=== PATIENT | female | born 1970 | race Caucasian/White ===

== ENCOUNTER → 2023-11-03 | Outpatient (REF) | payer OTHER, SELFPAY | LOC: DHSLP | PROVIDERS: ATTENDING PHYSICIAN Physician Assistant Medical | DX: G47.33 Obstructive sleep apnea (adult) (pediatric) (principal); R09.02 Hypoxemia | CPT/HCPCS: 95800 ==

== ENCOUNTER → 2023-11-15 07:54 | Outpatient (REF) | payer OTHER, SELFPAY | LOC: RAD 07:54 | PROVIDERS: ATTENDING PHYSICIAN Physician Assistant Medical | DX: G44.52 New daily persistent headache (NDPH) (principal); R42 Dizziness and giddiness | CPT/HCPCS: 70450 ==

== ENCOUNTER 2023-12-17 17:42 | Emergency (ER) | payer OTHER, SELFPAY ==
[2023-12-17 17:51] VITALS: BP 104/83
[2023-12-17 18:22] LABS: % Basophils 0.5 % (0-2); % Eosinophils 2.3 % (0-6); % Immature Granulocytes 0.5 % (0-0.5); % Lymphocytes 33.4 % (20.5-51.1); % Neutrophils 54.3 % (42.2-75.2); Absolute Eosinophils 0.2 10^3/uL (0-0.7); Absolute Lymphocytes 2.9 10^3/uL (1.2-3.4); Absolute Monocytes 0.8 10^3/uL (0.1-0.6); Absolute Neutrophils 4.7 10^3/uL (1.4-6.5); Hematocrit 38.8 % (37.0-47.0); Hemoglobin 13.2 g/dL (12.0-16.0); Mean Corpuscular Hgb 28.5 pg (27.0-31.0); Mean Corpuscular Volume 83.8 fL (81.0-99.0); Mean Platelet Volume 9.9 fL (7.4-10.4); Nucleated Red Blood Cells % 0 %; Platelet Count 233 10^3/uL (130-400); Red Blood Cell Count 4.63 10^6/uL (4.20-5.40); Red Cell Dist. Width 13.8 % (11.5-14.5); White Blood Cell Count 8.7 10^3/uL (4.8-10.8)
[2023-12-17 18:45] LABS: Troponin I < 0.012 ng/ml
[2023-12-17 18:49] LABS: ALT (SGPT) 38 U/L (0-35); AST (SGOT) 39 U/L (14-36); Albumin 3.9 g/dl (3.5-5.0); Alkaline Phosphatase 66 U/L (38-126); Blood Urea Nitrogen 10 mg/dl (7-17); Calcium 9.5 mg/dl (8.4-10.2); Carbon Dioxide 23 mmol/L (22-30); Chloride 103 mmol/L (98-107); Glucose 103 mg/dl (70-99); Sodium 136 mmol/L (135-145); Total Bilirubin 0.8 mg/dl (0.2-1.3); Total Protein 7.2 g/dl (6.3-8.2); eGFR > 60.00
--- NOTE | 2023-12-17 19:01 | ED.GENMED ---
History of Present Illness
<Estefania Cope NP - Last Filed: 12/18/23 00:49>
General
Chief Complaint: Fainting Sensation
Source: patient
Exam Limitations: none
Time Seen by Provider: 12/17/23 18:48
Nursing documentation reviewed up to this point in time: agreed with
Travel History
Have you had any contact with someone who has COVID-19?: No
Do you have any symptoms of coronavirus? Fever > 100 degrees, chills, cough, shortness of breath, sore throat, loss of taste or smell, muscle aches, or headache?: No
History of Present Illness
History of Present Illness:
Patient to ED stating her body feels heavy. Symptoms started suddenly approx 2 hours ago. SHe reports feeling lightheaded and 'cloudy'. Reports slight headache. Denies fever/chills, recent illness. No n/v/d. Denies any cp/pressure, SOB, cough.
No joint pain or swelling but states her joints feel tight. Brought to ED by spouse for eval. She was placed on a muscle relaxant and antidepressent by PCP 1 month ago for headaches. SHe states she weaned herself off because medication was not
working.
Past History
<Estefania Cope [employer]OMB[employer] POLISHER - Last Filed: 12/18/23 00:49>
Past History
ED Past Medical History: None
ED Past Surgical History: and Other (hernia repair)
Social History
Tobacco: Non-smoker
Alcohol: Occasional
Drug: None
Personal:
Living: with family
Review of Systems
<Estefania Cope [employer] - Last Filed: 12/18/23 00:49>
Review of Systems
Allergies reviewed?: Yes
All Other Systems: ROS reviewed and negative except as documented in HPI and ROS
Constitutional: Reports no symptoms
EENT: Reports no symptoms
Respiratory: Reports no symptoms
Cardiac: Reports no symptoms
ABD/GI: Reports no symptoms
: Reports no symptoms
Musculoskeletal: Reports other (JOints feel tight. NO swelling)
Skin: Reports no symptoms
Neurological: Reports headache and other (lightheaded, body feels heavy)
Psychiatric: Reports no symptoms
Phy Exam
<Estefania Cope [employer] - Last Filed: 12/18/23 00:49>
General Physical Exam
General Presentation: well appearing and no apparent distress
General age: appears stated age
General Skin: warm and dry
General Habitus: normal
General Mental: alert
Cardiovascular Exam
Cardiovascular Exam: regular rate/rhythm and no edema
Pulmonary Exam
Pulmonary Exam: lungs clear and no respiratory distress
Neurological Exam
Neurological Exam: alert, oriented x3, no motor deficits, no sensory deficits, speech normal and normal gait
Musculoskeletal Exam
Musculoskeletal Exam: full ROM and neuro vasc intact
Skin Exam
Skin Exam: normal color, warm/dry and no rash
Psychiatric Exam
Psychiatric Exam: normal mood/affect
Course
<Estefania Cope [employer] - Last Filed: 12/18/23 00:49>
Orders/Labs/Results
Orders:
Orders
12/17/23 17:54
Electrocardiogram (*1) Urgent
Reason for Study: Vertigo / Dizzy
EKG- Treatment ONCE
12/17/23 18:03
Complete Blood Count/With Diff Urgent
Comprehensive Metabolic Panel Urgent
TSH Reflex To Free T4 Urgent
Comment: ADD ON
Troponin I Urgent
12/17/23 18:58
Add On- LAB Urgent
Tests Added?: TSH reflex T4
CT Head W/o Iv Contrast Urgent
Comment:
Reason For Exam: pain
12/17/23 21:05
Urinalysis Reflex To Culture Urgent
Date Specimen was Collected: 12/17/23
Time Specimen was Collected: 21:01
Urine Microscopic Reflex Cult Urgent
Urine Culture Urgent
MARIO Source: U
Specimen Description:
Date Specimen was Collected: 12/17/23
Time Specimen was Collected: 21:01
12/17/23 21:06
Acetaminophen [Tylenol] 1,000 mg PO NOW STA
12/17/23 21:07
Acetaminophen [Tylenol] 1,000 mg .ROUTE .STK-MED ONE
12/17/23 22:06
Hydrochlorothiazide [Oretic] 25 mg PO NOW STA
Abnormal Lab Results
12/17/23 12/17/23
18:03 21:05
Absolute Monos (auto) 0.8 H 10^3/uL
(0.1-0.6)
Glucose 103 H mg/dl
(70-99)
AST 39 H U/L
(14-36)
ALT 38 H U/L
(0-35)
Leukocyte Esterase Rfl 1+ A
(Negative)
Urine WBC (Reflex) 11-15 A /HPF
(0-5)
Urine Bacteria (Reflex) Few A
(Negative)
12/17/23 18:03
12/17/23 18:03
Vital Signs
Initial and Last Documented VS:
Initial Vital Signs
Temp Pulse Resp BP Pulse Ox
98.6 F 88 18 104/83 98
12/17/23 17:51 12/17/23 17:51 12/17/23 17:51 12/17/23 17:51 12/17/23 17:51
Last Documented Vital Signs
Temp Pulse Resp BP Pulse Ox
98.6 F 81 13 126/83 96
12/17/23 17:51 12/17/23 20:08 12/17/23 20:08 12/17/23 20:08 12/17/23 20:08
<Mahesh Pineda, DO - Last Filed: 12/17/23 21:01>
Orders/Labs/Results
Orders:
Orders
12/17/23 17:54
Electrocardiogram (*1) Urgent
Reason for Study: Vertigo / Dizzy
EKG- Treatment ONCE
12/17/23 18:03
Complete Blood Count/With Diff Urgent
Comprehensive Metabolic Panel Urgent
TSH Reflex To Free T4 Urgent
Comment: ADD ON
Troponin I Urgent
12/17/23 18:58
Add On- LAB Urgent
Tests Added?: TSH reflex T4
CT Head W/o Iv Contrast Urgent
Comment:
Reason For Exam: pain
12/17/23 21:05
Urinalysis Reflex To Culture Urgent
Date Specimen was Collected: 12/17/23
Time Specimen was Collected: 21:01
Urine Microscopic Reflex Cult Urgent
Urine Culture Urgent
MARIO Source: U
Specimen Description:
Date Specimen was Collected: 12/17/23
Time Specimen was Collected: 21:01
12/17/23 21:06
Acetaminophen [Tylenol] 1,000 mg PO NOW STA
12/17/23 21:07
Acetaminophen [Tylenol] 1,000 mg .ROUTE .STK-MED ONE
12/17/23 22:06
Hydrochlorothiazide [Oretic] 25 mg PO NOW STA
Abnormal Lab Results
12/17/23 12/17/23
18:03 21:05
Absolute Monos (auto) 0.8 H 10^3/uL
(0.1-0.6)
Glucose 103 H mg/dl
(70-99)
AST 39 H U/L
(14-36)
ALT 38 H U/L
(0-35)
Leukocyte Esterase Rfl 1+ A
(Negative)
Urine WBC (Reflex) 11-15 A /HPF
(0-5)
Urine Bacteria (Reflex) Few A
(Negative)
12/17/23 18:03
12/17/23 18:03
Vital Signs
Initial and Last Documented VS:
Initial Vital Signs
Temp Pulse Resp BP Pulse Ox
98.6 F 88 18 104/83 98
12/17/23 17:51 12/17/23 17:51 12/17/23 17:51 12/17/23 17:51 12/17/23 17:51
Last Documented Vital Signs
Temp Pulse Resp BP Pulse Ox
98.6 F 81 13 126/83 96
12/17/23 17:51 12/17/23 20:08 12/17/23 20:08 12/17/23 20:08 12/17/23 20:08
<Estefania Cope NP - Last Filed: 12/18/23 00:49>
*Radiology
Radiology exam reviewed: radiology read reviewed
*Pulse Oximetry
Patient hypoxic: no
*Critical Care Note
Total Time (30-74mins, 75-104mins- exclusive of procedures): Not Applicable
<Estefania Cope NP - Last Filed: 12/18/23 00:49>
Update Note
Update Note:
Labs, Ct results reviewed with patient. WIll place on HCTZ for suspected Idiopathic Intracranial hypertnsion. She was given number for neurology follow up. Given insructions on s/s to return to ED and she is agreeable to [facility].
ED Attending Note
<Estefania Cope NP - Last Filed: 12/18/23 00:49>
-
Portions of this chart may have been created with voice recognition software.� Occasional wrong word or��sound alike� substitutions may have occurred due to the inherent limitations of voice recognition software.
<Mahesh Pineda DO - Last Filed: 12/17/23 21:01>
ED Attending Note
Patient seen and examined by attending physician: Yes
I performed the substantive portion of visit, reviewed & personally made and approve the management plan that is documented in note by myself or ITALO.: Yes
ED Attending Note:
Patient is a 53-year-old female who presents to the emergency department complaining of feeling congested and lightheaded with mild headache started this afternoon while driving home. Patient states that her head feels heavy and full. Patient has
minimal headache that she describes frontal going through the back. Patient does not smoke or take any medications. Patient denies any nausea, vomiting, diarrhea, abdominal pain. Patient denies chest pain, shortness of breath or palpitations.
Patient denies any recent illnesses or injuries. Patient states her face feels puffy. Patient denies any upper respiratory type symptoms. Patient denies any rashes or joint pain although does admit to joint stiffness. On physical exam patient
does not appear to be in any distress. Head is normocephalic with supple neck and nontenderness. Heart is regular without gallop or murmur. No carotid bruits. Lungs clear. Abdomen soft nontender. Extremities without edema or cyanosis. Patient
has good peripheral pulses. Neurologically patient is alert and oriented x 3, cranial nerves intact, no motor or sensory deficits, cerebellar intact. Reviewed the labs. Patient does not have a specific diagnosis but appears to be able to go home
and follow-up with family doctor.
Discharge Plan
Departure
Patient Disposition: Home (Routine Discharge)
Date of Disposition: 12/17/23
Time of Disposition: 22:06
Patient with high blood pressure during this ER visit?: No
Condition: Good
Covid-19: Not Applicable
Discharge Problem:
Headache, IIH (idiopathic intracranial hypertension)
Instructions: Headache, Adult ED
Prescriptions:
New
hydrochlorothiazide 25 mg tablet
25 mg PO DAILY Qty: 30 0RF
No Action
No Meds [No Current Medications]
meclizine [Antivert] 25 MG tablet
25 mg PO Q8 PRN (Reason: vertigo) Qty: 30 0RF
Referrals:
Valery Reynolds PA [Family Provider] -
Justin Gill MD [Active] - Call in 1-3 days for appt
Activity Restrictions/Additional Instructions:
Return to the emergency department immediately for any changes in/worsening of your symptoms.
Interventions
Interventions:
*Risk Screen - Suicide Last Done: 12/17/23 17:53
*General Assessment Last Done: 12/17/23 17:53
*Neglect/Abuse Screening Last Done: 12/17/23 17:53
*Nursing Disposition Last Done: 12/17/23 22:20
ED- Cardiac Assessment Last Done: 12/17/23 19:00
ED- Neurological Assessment Last Done: 12/17/23 19:00
Discharge Date and Time
Discharge Date/Time: 12/17/23 22:20
Print Language: KAZAKH
[2023-12-17 20:08] VITALS: BP 126/83
[2023-12-17 20:25] LABS: TSH Reflex To Free T4 1.78 uIU/ml (0.47-4.68)
[2023-12-17] MEDS: TYLENOL 1000 MG PO (21:11)
[2023-12-17 21:19] LABS: Urine Albumin Negative (Neg - Trace); Urine Bilirubin Negative (Negative); Urine Character Clear (Clear); Urine Color Yellow; Urine Glucose Negative (Negative); Urine Ketone Negative (Negative); Urine Leukocyte 1+ (Negative); Urine Nitrite Negative (Negative); Urine Occult Blood Negative (Negative); Urine Specific Gravity 1.015 (<1.030); Urine Urobilinogen Negative (Neg - 1+)
[2023-12-17 21:39] LABS: Urine Bacteria Few (Negative); Urine Red Blood Cell 0-2 /HPF (0-2); Urine Squamous Cell >30 /LPF (Few)
[2023-12-17] MEDS: ORETIC 25 MG PO (22:13)
== END 2023-12-17 22:20 | disposition home or self-care (01) ==
LOC: EMR 17:42
PROVIDERS: Emergency Medicine; Nurse Practitioner; EMERGENCY PHYSICIAN Emergency Medicine; FAMILY PHYSICIAN Physician Assistant Medical
DX: R51.9 Headache, unspecified (principal); G93.2 Benign intracranial hypertension; G93.5 Compression of brain
CPT/HCPCS: 99284; 70450; 80053; 81003; 81015; 84443; 84484; 85025; 87086; 93005

== ENCOUNTER 2023-12-21 09:00 | Emergency (ER) | payer OTHER, SELFPAY ==
--- NOTE | 2023-12-21 12:03 | ED.GENMED ---
History of Present Illness
<NITISH Piper - Last Filed: 12/21/23 18:35>
General
Chief Complaint: Headache
Source: patient and spouse
Exam Limitations: none
Time Seen by Provider: 12/21/23 11:40
Nursing documentation reviewed up to this point in time: agreed with
Travel History
Have you had any contact with someone who has COVID-19?: No
Do you have any symptoms of coronavirus? Fever > 100 degrees, chills, cough, shortness of breath, sore throat, loss of taste or smell, muscle aches, or headache?: Yes
Symptoms:: THOMSON
History of Present Illness
History of Present Illness:
Patient is a 53-year-old female who presents to the ER for headache. Patient reports she has a headache for years but never had this addressed or evaluated by neurology. She has seen family doctor once in the past couple months and was also seen
here several days ago on December 16. She had head CT done 12/16 and idiopathic hypertension was dx with idiopathic hypertension and was discharged on a diuretic without relief.
She continues to complain of headache worse with position change. She feels wobbly. She did vomit 2 days ago. She is not taking anything else for symptoms.
She reports her pupil on the left has problems dilating
Past History
<NITISH Piper - Last Filed: 12/21/23 18:35>
Past History
ED Past Medical History: None
ED Past Surgical History: and Other (hernia repair)
Social History
Tobacco: Non-smoker
Alcohol: Occasional
Drug: None
Personal:
Living: with family
Review of Systems
<NITISH Piper - Last Filed: 12/21/23 18:35>
Review of Systems
Allergies reviewed?: Yes
Other source history: family
All Other Systems: ROS reviewed and negative except as documented in HPI and ROS
Constitutional: Denies fever, fatigue or chills
EENT: Reports no symptoms
Respiratory: Reports no symptoms
Cardiac: Reports no symptoms
ABD/GI: Reports nausea and vomiting
: Reports no symptoms
Musculoskeletal: Reports no symptoms
Skin: Reports no symptoms
Neurological: Reports headache and other (Feels wobbly with gait at times.); Denies dizzy
Phy Exam
<NITISH Piper - Last Filed: 12/21/23 18:35>
General Physical Exam
General Presentation: no apparent distress
General age: appears stated age
General Skin: warm and dry
General Habitus: normal
General Mental: alert
General Hydration: appears well hydrated
Eye Exam
Eye Exam: PERRL, EOMI and other (Left pupil minimally reactive patient reports this is chronic)
Eye Exam General: EOM intact: bilateral
Pupil Exam: Bilateral: round and reactive
Neurological Exam
Neurological Exam: alert, oriented x3, no motor deficits and no sensory deficits
[place] Coma Scale
Eye Opening: Spontaneous
Verbal Response: Oriented
Motor Response: Obeys Commands
GCS Total Score: 15
Cerebellar
Cerebellar Function: normal finger to nose
Musculoskeletal Exam
Musculoskeletal Exam: full ROM
Skin Exam
Skin Exam: normal color and warm/dry
Psychiatric Exam
Psychiatric Exam: normal mood/affect
Course
<NITISH Piper - Last Filed: 12/21/23 18:35>
Orders/Labs/Results
Orders:
Orders
12/21/23 12:42
IV Insert/Care/Rem.- Treatment PRN
0.9% Sodium Chloride 1000 ml [Nss] 1,000 ml IV BOLUS
Metoclopramide [Reglan] 10 mg IV NOW STA
12/21/23 12:43
Diphenhydramine [Benadryl] 25 mg IV NOW STA
Ketorolac [Toradol] 15 mg IV NOW STA
Vital Signs
Initial and Last Documented VS:
Initial Vital Signs
Temp Pulse Resp Pulse Ox
98.3 F 94 16 98
12/21/23 09:04 12/21/23 09:04 12/21/23 09:04 12/21/23 09:04
Last Documented Vital Signs
Temp Pulse Resp BP Pulse Ox
98.3 F 79 18 120/67 100
12/21/23 09:04 12/21/23 13:02 12/21/23 13:02 12/21/23 13:02 12/21/23 13:02
Information Management Manager consulted with Physician
Information Management Manager consulted with physician?: Yes
Name of Physician Consulted: Darrell
<Oseas Ramírez, - Last Filed: 12/21/23 13:56>
Orders/Labs/Results
Orders:
Orders
12/21/23 12:42
IV Insert/Care/Rem.- Treatment PRN
0.9% Sodium Chloride 1000 ml [Nss] 1,000 ml IV BOLUS
Metoclopramide [Reglan] 10 mg IV NOW STA
12/21/23 12:43
Diphenhydramine [Benadryl] 25 mg IV NOW STA
Ketorolac [Toradol] 15 mg IV NOW STA
Vital Signs
Initial and Last Documented VS:
Initial Vital Signs
Temp Pulse Resp Pulse Ox
98.3 F 94 16 98
12/21/23 09:04 12/21/23 09:04 12/21/23 09:04 12/21/23 09:04
Last Documented Vital Signs
Temp Pulse Resp BP Pulse Ox
98.3 F 79 18 120/67 100
12/21/23 09:04 12/21/23 13:02 12/21/23 13:02 12/21/23 13:02 12/21/23 13:02
<NITISH Piper - Last Filed: 12/21/23 18:35>
MDM/Problems Addressed
MDM/Problems Addressed:
Patient is a 53-year-old female with chronic headaches had outpatient CAT scan once in October after being seen by family doctor and was seen here December 16 for continued headache. Had a CAT scan at that time which showed possible idiopathic
intracranial hypertension. She was started on HCTZ but presents back to the ER complaining of worsening headache feels little wobbly has had some vomiting. Patient with normal neurological exam here in the ER. Case reviewed with ED physician
evaluated patient case reviewed with neurology, Dr. Gill.
I spoke with IR to atttempt to get LP however not able to do today. This is not urgent and can be done as outpt. Patient treated for headache symptoms with Reglan Benadryl fluids and Toradol Feeling better. B/90 so much. as per neurology can
start patient on prochlorperazine 10 mg every day as a rescue agent and propranolol 10 mg daily could be a preventive agent will hold off on HCTZ.
<NITISH Piper - Last Filed: 12/21/23 18:35>
*Radiology
Radiology exam reviewed: radiology read reviewed
*Pulse Oximetry
Patient hypoxic: no
*Critical Care Note
Total Time (30-74mins, 75-104mins- exclusive of procedures): Not Applicable
ED Attending Note
<NITISH Piper - Last Filed: 12/21/23 18:35>
-
Portions of this chart may have been created with voice recognition software.� Occasional wrong word or��sound alike� substitutions may have occurred due to the inherent limitations of voice recognition software.
<Oseas Ramírez DO - Last Filed: 12/21/23 13:56>
ED Attending Note
Patient seen and examined by attending physician: Yes
I performed the substantive portion of visit, reviewed & personally made and approve the management plan that is documented in note by myself or ITALO.: Yes
ED Attending Note:
I agree with Anat's note.
Pt with increasing headache. Seen recently and had CT suggestive of IIH. No improvement with hctz that they began yesterday. No focal weakness, numbness, visual changes.
General: Awake, Alert, Oriented X3. No acute distress.
Vitals: unremarkable
Head: Atraumatic
Eyes: Pupils equal, EOMI, I did not identify any papilledema
Throat: Airway intact, no exudates
Neck: Trachea midline
Lungs: Clear and equal b/l
Heart: Regular rate, no murmurs
Abd: Soft, Nontender, No pulsatile mass
Neuro: Cranial nerves intact, muscle strength equal bilaterally, cerebellar exam normal
To call discuss scheduling an LP with IR. She also discussed with neurology. Will treat patient symptomatically at this time.
Discharge Plan
Departure
Patient Disposition: Home (Routine Discharge)
Date of Disposition: 12/21/23
Time of Disposition: 14:52
Patient with high blood pressure during this ER visit?: No
Condition: Fair
Covid-19: Not Applicable
Discharge Problem:
Headache
Prescriptions:
New
prochlorperazine maleate 10 mg tablet
10 mg PO ONCE PRN (Reason: headache) Qty: 10 0RF
propranolol 10 mg tablet
10 mg PO ONCE Qty: 30 0RF
No Action
No Meds [No Current Medications]
meclizine [Antivert] 25 MG tablet
25 mg PO Q8 PRN (Reason: vertigo) Qty: 30 0RF
hydrochlorothiazide 25 mg tablet
25 mg PO DAILY Qty: 30 0RF
Referrals:
Justin Gill MD [Active] -
Franki Leon MD [Family Provider] -
Activity Restrictions/Additional Instructions:
As discussed stop hydrochlorothiazide. You may take propranolol 10 mg daily to prevent headaches. In addition a prescription for prochlorperazine 10 mg was sent to your pharmacy to be taken as needed once daily for headache. Call neurology to
make an appointment as soon as possible.
Return if any worsening of symptoms
Interventions
Interventions:
*Risk Screen - Suicide Last Done: 12/21/23 12:12
*General Assessment Last Done: 12/21/23 12:12
*Neglect/Abuse Screening Last Done: 12/21/23 12:12
ED- Fall Risk Assessment Last Done: 12/21/23 14:38
*Nursing Disposition Last Done: 12/21/23 15:55
ED- Neurological Assessment Last Done: 12/21/23 13:03
Discharge Date and Time
Discharge Date/Time: 12/21/23 15:55
Print Language: [place]
--- NOTE | 2023-12-21 12:16 | EDRN ---
Pts BP on arrival noted in triage summary to be 113/90. Was not documented under VS on arrival.
[2023-12-21] MEDS: TORADOL 15 MG IV (12:57)
[2023-12-21] MEDS: BENADRYL 25 MG IV (12:57)
[2023-12-21] MEDS: NSS 1000 IV (12:58)
[2023-12-21] MEDS: REGLAN 10 MG IV (12:58)
[2023-12-21 13:02] VITALS: BP 120/67
== END 2023-12-21 15:55 | disposition home or self-care (01) ==
LOC: EMR 09:00
PROVIDERS: EMERGENCY PHYSICIAN Emergency Medicine; FAMILY PHYSICIAN Family Medicine
DX: R51.9 Headache, unspecified (principal); I10 Essential (primary) hypertension
CPT/HCPCS: 99282; 96374; 96375; 96361

== ENCOUNTER → 2023-12-31 11:09 | Outpatient (REF) | payer OTHER, SELFPAY ==
[2023-12-31 13:11] LABS: Rubella Positive
[2023-12-31 13:18] LABS: Hepatitis B Surface Antibody Negative
== END ==
LOC: OHS 11:09
PROVIDERS: ATTENDING PHYSICIAN Nurse Practitioner Family
DX: Z23 Encounter for immunization (principal)
CPT/HCPCS: 36415; 86480; 86706; 86735; 86762; 86765; 86787

== ENCOUNTER 2024-01-03 12:31 | Emergency (ER) | payer OTHER, SELFPAY ==
[2024-01-03 12:38] VITALS: BP 105/84
[2024-01-03 13:01] LABS: % Basophils 0.8 % (0-2); % Eosinophils 3.1 % (0-6); % Immature Granulocytes 0.3 % (0-0.5); % Lymphocytes 35.4 % (20.5-51.1); % Monocytes 8.6 % (1.7-9.3); % Neutrophils 51.8 % (42.2-75.2); Absolute Basophils 0.1 10^3/uL (0-0.2); Absolute Eosinophils 0.2 10^3/uL (0-0.7); Absolute Lymphocytes 2.6 10^3/uL (1.2-3.4); Absolute Monocytes 0.6 10^3/uL (0.1-0.6); Absolute Neutrophils 3.9 10^3/uL (1.4-6.5); Hematocrit 43.6 % (37.0-47.0); Hemoglobin 14.4 g/dL (12.0-16.0); Mean Corpuscular Hgb 28.2 pg (27.0-31.0); Mean Corpuscular Volume 85.5 fL (81.0-99.0); Mean Platelet Volume 10.4 fL (7.4-10.4); Nucleated Red Blood Cells % 0 %; Platelet Count 267 10^3/uL (130-400); Red Cell Dist. Width 13.2 % (11.5-14.5); White Blood Cell Count 7.5 10^3/uL (4.8-10.8)
--- NOTE | 2024-01-03 13:39 | ED.GENMED ---
History of Present Illness
<Estefania Cope NP - Last Filed: 01/03/24 20:41>
General
Chief Complaint: Headache
Source: patient
Exam Limitations: none
Time Seen by Provider: 01/03/24 13:27
Nursing documentation reviewed up to this point in time: agreed with
Travel History
Have you had any contact with someone who has COVID-19?: No
Do you have any symptoms of coronavirus? Fever > 100 degrees, chills, cough, shortness of breath, sore throat, loss of taste or smell, muscle aches, or headache?: No
History of Present Illness
History of Present Illness:
Patient to ED with complaint of migraine headache. She was evaluated here 2x in the past month for same. Original CT with suggestion of idiopathic intracranial hypertension. SHe was referred to neuro. States she saw Dr. Ceballos 2 weeks ago. Started
on propranolol and sumatriptan without improvement,. Evaluated by Dr. Medrano (ophthalmology), exam inconclusive. States she was told next step would be LP which was supposed to be scheduled by neuro office but appointment has not been set yet.
Brought to ED today by spouse for eval. Denies fever/chill. Had an episode of vomiting yesterday.
Past History
<Estefania Cope HOTEL HOUSEKEEPER - Last Filed: 01/03/24 20:41>
Past History
ED Past Medical History: None
ED Past Surgical History: and Other (hernia repair)
Social History
Tobacco: Non-smoker
Alcohol: Occasional
Drug: None
Personal:
Living: with family
Review of Systems
<Estefania Cope NP - Last Filed: 01/03/24 20:41>
Review of Systems
Allergies reviewed?: Yes
All Other Systems: ROS reviewed and negative except as documented in HPI and ROS
Constitutional: Reports no symptoms
EENT: Reports no symptoms
Respiratory: Reports no symptoms
Cardiac: Reports no symptoms
ABD/GI: Reports no symptoms
Musculoskeletal: Reports no symptoms
Skin: Reports no symptoms
Neurological: Reports headache
Psychiatric: Reports no symptoms
Phy Exam
<Estefania Cope NP - Last Filed: 01/03/24 20:41>
General Physical Exam
General Presentation: well appearing and mild distress
General age: appears stated age
General Skin: warm and dry
General Habitus: normal
General Mental: alert
Eye Exam
Eye Exam: PERRL, EOMI and conjunctiva normal
Neurological Exam
Neurological Exam: alert, oriented x3, CN II-XII intact, no motor deficits, no sensory deficits, speech normal and normal gait
Musculoskeletal Exam
Musculoskeletal Exam: full ROM and neuro vasc intact
Skin Exam
Skin Exam: normal color, warm/dry and no rash
Psychiatric Exam
Psychiatric Exam: normal mood/affect
Course
<Estefania Cope HOTEL HOUSEKEEPER - Last Filed: 01/03/24 20:41>
Orders/Labs/Results
Orders:
Orders
01/03/24 12:50
Complete Blood Count/With Diff Urgent
Comprehensive Metabolic Panel Urgent
01/03/24 14:28
Diphenhydramine [Benadryl] 50 mg IV NOW STA
Ketorolac [Toradol] 30 mg IV NOW STA
Prochlorperazine [Compazine] 10 mg IV NOW STA
01/03/24 14:30
0.9% Sodium Chloride 500 ml [Nss] 500 ml IV BOLUS
01/03/24 14:46
Consult Interventional Radiology [IRAD CONSULT] Routine
Consulting Provider: Lebron Gonzalez
Was physician already notified: Yes
Reason for Consult/Procedure: Please schedule outpatient LP
Acknowledgement that appropriate orders are entered: Yes
Dexamethasone Sod Phosphate [Decadron] 10 mg IV NOW STA
Abnormal Lab Results
01/03/24
12:50
AST 56 H U/L
(14-36)
ALT 51 H U/L
(0-35)
01/03/24 12:50
01/03/24 12:50
Vital Signs
Initial and Last Documented VS:
Initial Vital Signs
Temp Pulse Resp BP Pulse Ox
98.3 F 68 18 105/84 98
01/03/24 12:38 01/03/24 12:38 01/03/24 12:38 01/03/24 12:38 01/03/24 12:38
Last Documented Vital Signs
Temp Pulse Resp BP Pulse Ox
98.3 F 68 19 123/73 94
01/03/24 12:38 01/03/24 18:26 01/03/24 18:26 01/03/24 18:26 01/03/24 18:26
<Mahesh Pineda, DO - Last Filed: 01/03/24 16:24>
Orders/Labs/Results
Orders:
Orders
01/03/24 12:50
Complete Blood Count/With Diff Urgent
Comprehensive Metabolic Panel Urgent
01/03/24 14:28
Diphenhydramine [Benadryl] 50 mg IV NOW STA
Ketorolac [Toradol] 30 mg IV NOW STA
Prochlorperazine [Compazine] 10 mg IV NOW STA
01/03/24 14:30
0.9% Sodium Chloride 500 ml [Nss] 500 ml IV BOLUS
01/03/24 14:46
Consult Interventional Radiology [IRAD CONSULT] Routine
Consulting Provider: Lebron Gonzalez
Was physician already notified: Yes
Reason for Consult/Procedure: Please schedule outpatient LP
Acknowledgement that appropriate orders are entered: Yes
Dexamethasone Sod Phosphate [Decadron] 10 mg IV NOW STA
Abnormal Lab Results
01/03/24
12:50
AST 56 H U/L
(14-36)
ALT 51 H U/L
(0-35)
01/03/24 12:50
01/03/24 12:50
Vital Signs
Initial and Last Documented VS:
Initial Vital Signs
Temp Pulse Resp BP Pulse Ox
98.3 F 68 18 105/84 98
01/03/24 12:38 01/03/24 12:38 01/03/24 12:38 01/03/24 12:38 01/03/24 12:38
Last Documented Vital Signs
Temp Pulse Resp BP Pulse Ox
98.3 F 68 19 123/73 94
01/03/24 12:38 01/03/24 18:26 01/03/24 18:26 01/03/24 18:26 01/03/24 18:26
<Estefania Cope NP - Last Filed: 01/03/24 20:41>
*Critical Care Note
Total Time (30-74mins, 75-104mins- exclusive of procedures): Not Applicable
<Estefania Cope NP - Last Filed: 01/03/24 20:41>
Update Note
Update Note:
Patient to ED for migraine pain, Has been following with Neurology. Started on Sumatriptan and propranolol. Medication has not been helpful today. Given Migraine cocktail in ED with improvment. Discussed need for LP with IR. IR to schedule
outpatinet appointment with patient. Patient is agreeable to plan.
ED Attending Note
<Estefania Cope NP - Last Filed: 01/03/24 20:41>
-
Portions of this chart may have been created with voice recognition software.� Occasional wrong word or��sound alike� substitutions may have occurred due to the inherent limitations of voice recognition software.
<Mahesh Pineda, DO - Last Filed: 01/03/24 16:24>
ED Attending Note
Patient seen and examined by attending physician: Yes
I performed the substantive portion of visit, reviewed & personally made and approve the management plan that is documented in note by myself or ITALO.: Yes
ED Attending Note:
Patient is 53-year-old female with known history of migraines and was recently started on propranolol after being seen by neurology. Patient states the headache is in the right frontal to occipital region but she has ringing in her left ear which
she typically normally does not. Patient denies any photophobia, visual or speech difficulties. Patient denies focal weakness or ataxia. Patient denies any recent illnesses or injuries. Patient has no nausea or vomiting. Patient CT at 1 point
showed questionable early increased pressure. Patient saw ophthalmology who did not feel this is pseudotumor cerebri. Patient is having difficulty getting into have an LP done at the request of her neurologist. Patient physical exam is
unremarkable and she does not appear to be in any distress. Neurologically she is intact. Heart is regular without bruits or murmurs. Lungs are clear. Patient will have a LP scheduled through interventional radiology. Believe this to be a
chronic migraine headache.
Discharge Plan
Departure
Patient Disposition: Home (Routine Discharge)
Date of Disposition: 01/03/24
Time of Disposition: 17:08
Patient with high blood pressure during this ER visit?: No
Condition: Good
Discharge Problem:
Migraine
Instructions: Migraines (DC)
Prescriptions:
No Action
No Meds [No Current Medications]
meclizine [Antivert] 25 MG tablet
25 mg PO Q8 PRN (Reason: vertigo) Qty: 30 0RF
hydrochlorothiazide 25 mg tablet
25 mg PO DAILY Qty: 30 0RF
prochlorperazine maleate 10 mg tablet
10 mg PO ONCE PRN (Reason: headache) Qty: 10 0RF
propranolol 10 mg tablet
10 mg PO ONCE Qty: 30 0RF
Referrals:
Valery Reynolds PA [Family Provider] -
Activity Restrictions/Additional Instructions:
Follow up with your neurologist.
Interventions
Interventions:
*Risk Screen - Suicide Last Done: 01/03/24 12:38
*General Assessment Last Done: 01/03/24 12:38
*Neglect/Abuse Screening Last Done: 01/03/24 12:38
ED- Fall Risk Assessment Last Done: 01/03/24 15:20
*ED COVID-19 Vaccine History Last Done: 01/03/24 12:38
*Nursing Disposition Last Done: 01/03/24 18:26
ED- Neurological Assessment Last Done: 01/03/24 15:20
Discharge Date and Time
Discharge Date/Time: 01/03/24 18:00
Print Language: SLOVAK
[2024-01-03 13:40] LABS: ALT (SGPT) 51 U/L (0-35); AST (SGOT) 56 U/L (14-36); Albumin 4.4 g/dl (3.5-5.0); Alkaline Phosphatase 75 U/L (38-126); Blood Urea Nitrogen 14 mg/dl (7-17); Calcium 9.7 mg/dl (8.4-10.2); Carbon Dioxide 22 mmol/L (22-30); Chloride 105 mmol/L (98-107); Glucose 99 mg/dl (70-99); Potassium 4.2 mmol/L (3.5-5.1); Sodium 138 mmol/L (135-145); Total Bilirubin 0.9 mg/dl (0.2-1.3); eGFR > 60.00
[2024-01-03] MEDS: BENADRYL 50 MG IV (15:04)
[2024-01-03] MEDS: COMPAZINE 10 MG IV (15:05)
[2024-01-03] MEDS: TORADOL 30 MG IV (15:06)
[2024-01-03] MEDS: DECADRON 10 MG IV (15:07)
[2024-01-03] MEDS: NSS 500 IV (15:13)
[2024-01-03 15:21] VITALS: BP 118/72
[2024-01-03 18:26] VITALS: BP 123/73
== END 2024-01-03 18:00 | disposition home or self-care (01) ==
LOC: EMR 12:31
PROVIDERS: Emergency Medicine; CONSULT PHYSICIAN Radiology Vascular & Interventional Radiology; EMERGENCY PHYSICIAN Emergency Medicine; FAMILY PHYSICIAN Physician Assistant Medical
DX: G43.909 Migraine, unspecified, not intractable, without status migrainosus (principal)
CPT/HCPCS: 99284; 96374; 96375 ×3; 96361; 80053; 85025

== ENCOUNTER 2024-01-07 10:18 | Outpatient (REF) | payer OTHER, SELFPAY ==
[2024-01-07 11:04] VITALS: BP 131/77; BP_SYST 74
[2024-01-07 11:31] LABS: INR 1.17; PT 14.8 Sec (11.4-14.6)
[2024-01-07 12:00] VITALS: BP 130/89; BP_SYST 72
[2024-01-07 12:45] VITALS: BP 121/80
[2024-01-07 12:57] LABS: CSF Clarity Clear; CSF Color Colorless; CSF Tube # 1; CSF Tube # 4; CSF Tube # Clarity Clear; Red Cell Count/CSF 169 mm^3; Red Cell Count/CSF 6 mm^3; White Blood Cell Count/CSF 3 mm^3 (0-5); White Cell Count/CSF 2 mm^3 (0-5)
[2024-01-07 13:04] LABS: Spinal Fluid Glucose 54 mg/dl (40-70); Spinal Fluid Protein 62 mg/dl (12-60)
[2024-01-07 13:45] VITALS: BP 125/84
== END 2024-01-07 14:04 | disposition home or self-care (01) ==
LOC: RADI 10:18
PROVIDERS: ATTENDING PHYSICIAN Specialist
DX: R51.9 Headache, unspecified (principal)
CPT/HCPCS: 36415; 62328; 82040; 82042; 82164; 82784; 82945; 83873; 83916; 84157; 85610; 86592; 86780; 87476; 89051

== ENCOUNTER 2024-01-12 19:22 | Emergency (ER) | payer OTHER, SELFPAY ==
[2024-01-12 19:30] VITALS: BP 117/95
[2024-01-12 19:46] LABS: % Basophils 0.6 % (0-2); % Eosinophils 2.2 % (0-6); % Immature Granulocytes 0.3 % (0-0.5); % Lymphocytes 38.9 % (20.5-51.1); % Monocytes 9.4 % (1.7-9.3); % Neutrophils 48.6 % (42.2-75.2); Absolute Eosinophils 0.2 10^3/uL (0-0.7); Absolute Lymphocytes 2.8 10^3/uL (1.2-3.4); Absolute Monocytes 0.7 10^3/uL (0.1-0.6); Absolute Neutrophils 3.5 10^3/uL (1.4-6.5); Hematocrit 38.6 % (37.0-47.0); Hemoglobin 13.4 g/dL (12.0-16.0); Mean Corp Hgb Conc. 34.7 g/dL (33.0-37.0); Mean Corpuscular Hgb 28.4 pg (27.0-31.0); Mean Corpuscular Volume 81.8 fL (81.0-99.0); Mean Platelet Volume 10.1 fL (7.4-10.4); Nucleated Red Blood Cells % 0 %; Platelet Count 254 10^3/uL (130-400); Red Blood Cell Count 4.72 10^6/uL (4.20-5.40); Red Cell Dist. Width 13.4 % (11.5-14.5); White Blood Cell Count 7.2 10^3/uL (4.8-10.8)
[2024-01-12 20:06] LABS: ALT (SGPT) 29 U/L (0-35); AST (SGOT) 31 U/L (14-36); Albumin 4.4 g/dl (3.5-5.0); Alkaline Phosphatase 74 U/L (38-126); Blood Urea Nitrogen 13 mg/dl (7-17); Calcium 10.1 mg/dl (8.4-10.2); Carbon Dioxide 21 mmol/L (22-30); Chloride 104 mmol/L (98-107); Glucose 98 mg/dl (70-99); Potassium 3.9 mmol/L (3.5-5.1); Sodium 136 mmol/L (135-145); Total Bilirubin 0.7 mg/dl (0.2-1.3); Total Protein 7.4 g/dl (6.3-8.2); eGFR > 60.00
[2024-01-12 20:17] LABS: Troponin I < 0.012 ng/ml
--- NOTE | 2024-01-12 21:21 | ED.GENMED ---
History of Present Illness
General
Chief Complaint: Headache
Source: patient and spouse
Exam Limitations: none
Time Seen by Provider: 01/12/24 21:01
History of Present Illness
History of Present Illness:
This is a 53 year old female that comes in with c/o headache, chest pain and SOB. States that this is her 4 time here in the past 3 months with headaches. States that her headache is all across her forehead. States that she has chest pain with this
and it is hard to breath. States that this started earlier today. States that normally when she get in the shower it helps but this did not help. States that she started vomiting. State that she also had a spinal tap on Wednesday. States that she
feels dizzy with the headache. states that she was taking Propranolol for her migraines and is seeing Dr. Arriaza. Denies any fever, chills, abd pain, diarrhea, urinary burning.
Past History
Past History
ED Past Medical History: HTN and Other (Migraines)
ED Past Surgical History: (X 1) and Other (hernia repair)
Social History
Tobacco: Non-smoker
Alcohol: None
Drug: None
Personal:
Living: with family
Review of Systems
Review of Systems
All Other Systems: ROS reviewed and negative except as documented in HPI and ROS
Constitutional: Reports no symptoms; Denies fever or chills
Respiratory: Reports trouble breathing; Denies cough
Cardiac: Reports chest pain
ABD/GI: Reports nausea and vomiting; Denies abdominal pain or diarrhea
: Reports no symptoms; Denies dysuria, frequency or urgency
Musculoskeletal: Reports no symptoms
Neurological: Reports dizzy (Slight) and headache
Psychiatric: Reports no symptoms
Phy Exam
General Physical Exam
General Presentation: mild distress
General age: appears stated age
General Skin: warm and dry
General Habitus: normal
General Mental: alert
General Hydration: appears well hydrated
ENT Exam
ENT Exam: TM's normal, pharynx normal and neck supple
Eye Exam
Eye Exam: EOMI
Cardiovascular Exam
Cardiovascular Exam: regular rate/rhythm, no edema, no murmur and normal peripheral pulses
Pulmonary Exam
Pulmonary Exam: lungs clear, no respiratory distress, no rales, chest non tender, no crackles, no rhonchi, no wheezing and no cough
Gastrointestinal Exam
Gastrointestinal Exam: normal bowel sounds, non tender, soft, no organomegaly, no pulsatile mass and non distended
Musculoskeletal Exam
Musculoskeletal Exam: full ROM and no edema
Skin Exam
Skin Exam: normal color, warm/dry, no rash and no petechia
Psychiatric Exam
Psychiatric Exam: normal mood/affect
Course
Orders/Labs/Results
Orders:
Orders
01/12/24 19:33
Electrocardiogram (*1) Urgent
Reason for Study: Chest Pain
CT Head W/o Iv Contrast Urgent
Comment:
Reason For Exam: headache
01/12/24 19:34
EKG- Treatment ONCE
01/12/24 19:40
Complete Blood Count/With Diff Urgent
Comprehensive Metabolic Panel Urgent
Troponin I Urgent
01/12/24 21:20
0.9% Sodium Chloride 1000 ml [Nss] 1,000 ml IV BOLUS
Dexamethasone Sod Phosphate [Decadron] 20 mg IV NOW STA
Diphenhydramine [Benadryl] 25 mg IV NOW STA
Ketorolac [Toradol] 30 mg IV NOW STA
Prochlorperazine [Compazine] 5 mg IV NOW STA
01/12/24 21:22
EKG- Treatment ONCE
01/12/24 21:25
Ketorolac [Toradol] 30 mg .ROUTE .STK-MED ONE
01/12/24 22:20
Troponin I Urgent
01/12/24 22:40
Electrocardiogram (*1) Urgent
Reason for Study: Chest Pain
Other Reason for Exam: repeat with troponin
01/12/24 23:16
Acetaminophen [Tylenol] 1,000 mg PO NOW STA
Abnormal Lab Results
01/12/24
19:40
Absolute Monos (auto) 0.7 H 10^3/uL
(0.1-0.6)
Monocytes % 9.4 H %
(1.7-9.3)
Carbon Dioxide 21 L mmol/L
(22-30)
01/12/24 19:40
01/12/24 19:40
carbon dioxide very slightly low. troponin <0.012, Second troponin <0.012
Vital Signs
Initial and Last Documented VS:
Initial Vital Signs
Temp Pulse Resp BP Pulse Ox
97.9 F 71 20 117/95 98
01/12/24 19:30 01/12/24 19:30 01/12/24 19:30 01/12/24 19:30 01/12/24 19:30
Last Documented Vital Signs
Temp Pulse Resp BP Pulse Ox
97.9 F 86 15 120/68 92
01/12/24 19:30 01/12/24 22:30 01/12/24 22:30 01/12/24 22:00 01/12/24 22:30
MDM/Problems Addressed
Differential Diagnosis Includes:
Migraine. Spinal headache
MDM/Problems Addressed:
This is a 53 year old female that comes in with c/o headache, chest pain and SOB. States that this all started today. Patient has been here 4 times in the past 2-3 months.
Will get labs, CT had and medicate for pain.
back into see patient. States that her headache is better but not gone. States that she is ready to go home. Will have patient increase her water intake to 8-8oz glasses daily. Patient to follow up with the Neurologist. Patient to return with any
concerns.
Chronic conditions affecting care:
Migraines
Acute Exacerbation and/or Progression of Chronic Illness:
migraines
*Radiology
Radiology exam reviewed: radiology read reviewed (CT head-No acute intracranial hemorrhage or infarct. stable changes suggesting idiopathic intracranial hypertension versus Congenital Chiari I malformation. )
*Pulse Oximetry
Patient hypoxic: no
*EKG
Interpreted by ED Provider?: Yes
Heart Rate: 66
Rate: normal
Rhythm: sinus
Baldwin: normal axis
Interval: normal interval
QRS Pattern: normal QRS
Ischemia: no ischemia
*Head Batcher Interpretation
Rate: normal
Heart Rate: 67
Rhythm: sinus
*Critical Care Note
Total Time (30-74mins, 75-104mins- exclusive of procedures): Not Applicable
ED Attending Note
-
Portions of this chart may have been created with voice recognition software.� Occasional wrong word or��sound alike� substitutions may have occurred due to the inherent limitations of voice recognition software.
Discharge Plan
Departure
Patient Disposition: Home (Routine Discharge)
Date of Disposition: 01/12/24
Time of Disposition: 23:17
Patient with high blood pressure during this ER visit?: No
Condition: Good
Covid-19: Not Applicable
Discharge Problem:
Migraine
Instructions: Migraines (DC)
Prescriptions:
No Action
meclizine [Antivert] 25 MG tablet
25 mg PO Q8 PRN (Reason: vertigo) Qty: 30 0RF
hydrochlorothiazide 25 mg tablet
25 mg PO DAILY Qty: 30 0RF
prochlorperazine maleate 10 mg tablet
10 mg PO ONCE PRN (Reason: headache) Qty: 10 0RF
propranolol 10 mg tablet
10 mg PO ONCE Qty: 30 0RF
Referrals:
Valery Reynolds PA [Family Provider] - Call in 1-3 days for appt
Activity Restrictions/Additional Instructions:
As discussed, your blood work is normal. Your CT is negative for any acute process. Please increase your water intake to 8-8oz glasses daily. Follow up with the Neurologist for further evaluation. IF YOU HAV INCREASED OR CHANGING HEADACHE PAIN, OR
YOU HAVE ANY OTHER CONCERNS PLEASE RETURN TO THE EMERGENCY ROOM.
Interventions
Interventions:
*Risk Screen - Suicide Last Done: 01/12/24 19:30
*General Assessment Last Done: 01/12/24 19:30
*Neglect/Abuse Screening Last Done: 01/12/24 19:30
Discharge Date and Time
Print Language: BELIZEAN
[2024-01-12] MEDS: TORADOL 30 MG IV (21:33)
[2024-01-12] MEDS: DECADRON 20 MG IV (21:33)
[2024-01-12] MEDS: BENADRYL 25 MG IV (21:34)
[2024-01-12] MEDS: NSS 1000 IV (21:34)
[2024-01-12 21:42] VITALS: BP 124/84
[2024-01-12] MEDS: COMPAZINE 5 MG IV (21:48)
[2024-01-12 22:00] VITALS: BP 120/68
[2024-01-12 22:48] LABS: Troponin I < 0.012 ng/ml
[2024-01-12 23:00] VITALS: BP 114/66
[2024-01-12] MEDS: TYLENOL 1000 MG PO (23:23)
== END 2024-01-12 23:41 | disposition home or self-care (01) ==
LOC: EMR 19:22
PROVIDERS: Clinical Nurse Specialist Family Health; Emergency Medicine; EMERGENCY PHYSICIAN Emergency Medicine; FAMILY PHYSICIAN Physician Assistant Medical
DX: G43.909 Migraine, unspecified, not intractable, without status migrainosus (principal); I10 Essential (primary) hypertension
CPT/HCPCS: 99284; 96374; 96375; 96361; 70450; 80053; 84484; 85025; 93005

== ENCOUNTER → 2024-01-26 08:36 | Outpatient (REF) | payer OTHER, SELFPAY ==
[2024-01-26 10:48] LABS: Erythrocyte Sed Rate 23 mm/hour (0-20)
[2024-01-26 10:53] LABS: Calcium 9.3 mg/dl (8.4-10.2)
[2024-01-26 10:54] LABS: Intact PTH 39.4 pg/ml (13.6-85.8)
[2024-01-26 11:59] LABS: Folate 8.6 ng/ml (2.76-20)
[2024-01-26 13:00] LABS: Vitamin B12 354 pg/ml (239-931)
[2024-01-27 15:58] LABS: Lyme Antibody Screen, EIA Negative (Negative)
[2024-01-28 01:35] LABS: ANA, IgG Reflex to HEp-2 None Detected (None Detected)
== END ==
LOC: REG 08:36
PROVIDERS: ATTENDING PHYSICIAN Specialist; FAMILY PHYSICIAN Family Medicine
DX: R51.9 Headache, unspecified (principal); E21.3 Hyperparathyroidism, unspecified
CPT/HCPCS: 36415; 82607; 82746; 83970; 85652; 86038; 86140; 86618

== ENCOUNTER → 2024-02-14 09:09 | Outpatient (REF) | payer OTHER, SELFPAY | LOC: MRI 3T 09:09 | PROVIDERS: ATTENDING PHYSICIAN Specialist; FAMILY PHYSICIAN Physician Assistant Medical | DX: R51.9 Headache, unspecified (principal) | CPT/HCPCS: 70553; A9575 ==

== ENCOUNTER → 2024-04-05 14:02 | Outpatient (REF) | payer OTHER, SELFPAY | LOC: WDC 14:02 | PROVIDERS: ATTENDING PHYSICIAN Nurse Practitioner Adult Health; FAMILY PHYSICIAN Physician Assistant Medical | DX: Z12.31 Encounter for screening mammogram for malignant neoplasm of breast (principal) | CPT/HCPCS: 77063; 77067 ==

== ENCOUNTER → 2024-04-19 15:12 | Outpatient (REF) | payer OTHER, SELFPAY | LOC: RAD 15:12 | PROVIDERS: ATTENDING PHYSICIAN Nurse Practitioner Adult Health; FAMILY PHYSICIAN Physician Assistant Medical | DX: N95.0 Postmenopausal bleeding (principal) | CPT/HCPCS: 76830; 76856 ==

== ENCOUNTER 2025-03-19 19:18 | Emergency (ER) | payer OTHER, SELFPAY ==
[2025-03-19 19:24] VITALS: BP 112/76
[2025-03-19 19:58] LABS: Hematocrit 41.7 % (37.0-47.0); Hemoglobin 14.1 g/dL (12.0-16.0); Mean Corp Hgb Conc. 33.8 g/dL (33.0-37.0); Mean Corpuscular Volume 83.9 fL (81.0-99.0); Platelet Count 191 10^3/uL (130-400); Red Cell Dist. Width 14.5 % (11.5-14.5)
[2025-03-19 20:11] LABS: Troponin I 0.015 ng/ml
[2025-03-19 20:15] LABS: ALT (SGPT) 54 U/L (0-35); AST (SGOT) 52 U/L (14-36); Albumin 4.1 g/dl (3.5-5.0); Alkaline Phosphatase 71 U/L (38-126); Blood Urea Nitrogen 19 mg/dl (7-17); COVID-19 Antigen Negative (Negative); Calcium 9.0 mg/dl (8.4-10.2); Carbon Dioxide 24 mmol/L (22-30); Chloride 107 mmol/L (98-107); Glucose 97 mg/dl (70-99); Potassium 3.9 mmol/L (3.5-5.1); Sodium 137 mmol/L (135-145); Total Protein 7.3 g/dl (6.3-8.2); eGFR > 60.00
[2025-03-19 20:30] LABS: Nucleated Red Blood Cells % 0 %
[2025-03-19] MEDS: TORADOL 30 MG IV (22:12)
[2025-03-19] MEDS: BENADRYL 25 MG IV (22:12)
[2025-03-19] MEDS: COMPAZINE 5 MG IV (22:13)
[2025-03-19] MEDS: NSS 1000 IV (22:17)
[2025-03-19 22:21] VITALS: BP 118/77
[2025-03-19 22:49] LABS: Troponin I 0.017 ng/ml
--- NOTE | 2025-03-19 22:51 | ED.GENMED ---
History of Present Illness
General
Chief Complaint: Headache
Source: patient
Exam Limitations: none
Time Seen by Provider: 03/19/25 21:19
Nursing documentation reviewed up to this point in time: agreed with
History of Present Illness
History of Present Illness:
SEE MDM
Past History
Past History
ED Past Medical History: HTN and Other (Migraines)
ED Past Surgical History: (X 1) and Other (hernia repair)
Social History
Tobacco: Non-smoker
Alcohol: None
Drug: None
Personal:
Living: with family
Review of Systems
Review of Systems
Allergies reviewed?: Yes
All Other Systems: Not applicable
Phy Exam
Physical Exam
Physical Exam:
GENERAL: Alert , in no apparent distress
HEAD: NCAT
EYE: R pupil constricted, does not dilate; no nystagmus, minimal photophobia
NECK: Supple,full rom, nontender
ENT: o/p clr, mmm.
CARDIAC: Regular rate and rhythm . no edema
LUNGS: Clear breath sounds bilaterally, no acute respiratory distress, no wheezes/rales/rhonchi
ABDOMEN: Soft, without focal tenderness, no r/g, no cvat
NEUROLOGICAL: Alert and orientedx 4, cn intact, no facial asymmetry, 5/5 strength in UE/LE, sensation intact, romberg neg, ambulates without assistance, neg pronator drift
SKIN: Warm and dry, skin intact.
MUSCULOSKELETAL: No edema, well perfused.
PSYCH: Normal and appropriate interaction.
Course
Orders/Labs/Results
Orders:
Orders
03/19/25 19:27
Electrocardiogram (*1) Urgent
Reason for Study: Chest Pain
EKG- Treatment ONCE
03/19/25 19:38
COVID-19 Antigen Urgent
Source: Nasal Swab
Complete Blood Count/With Diff Urgent
Comprehensive Metabolic Panel Urgent
Troponin I Urgent
Influenza A+B Rapid Molecular Urgent
MARIO Source: Nasal Swab
Specimen Description:
03/19/25 22:03
0.9% Sodium Chloride 1000 ml [Nss] 1,000 ml IV BOLUS
Diphenhydramine [Benadryl] 25 mg IV NOW STA
Ketorolac [Toradol] 30 mg IV NOW STA
Prochlorperazine [Compazine] 5 mg IV NOW STA
03/19/25 22:12
Troponin I Urgent
03/20/25 00:00
Dexamethasone Sod Phosphate [Decadron] 10 mg IV NOW STA
Abnormal Lab Results
03/19/25
19:38
Absolute Lymphs (auto) 3.6 H 10^3/uL
(1.2-3.4)
Neutrophils % 35.7 L %
(42.2-75.2)
Lymphocytes % 52.9 H %
(20.5-51.1)
Monocytes % 9.4 H %
(1.7-9.3)
BUN 19 H mg/dl
(7-17)
AST 52 H U/L
(14-36)
ALT 54 H U/L
(0-35)
03/19/25 19:38
03/19/25 19:38
Vital Signs
Initial and Last Documented VS:
Initial Vital Signs
Temp Pulse Resp BP Pulse Ox
36.5 C 102 18 112/76 98
03/19/25 19:24 03/19/25 19:24 03/19/25 19:24 03/19/25 19:24 03/19/25 19:24
Last Documented Vital Signs
Temp Pulse Resp BP Pulse Ox
36.5 C 97 16 118/77 97
03/19/25 19:24 03/19/25 22:21 03/19/25 22:21 03/19/25 22:21 03/19/25 22:53
MDM/Problems Addressed
Differential Diagnosis Includes:
see MDM
MDM/Problems Addressed:
Note:
CHIEF COMPLAINT(S)
Chronic headaches with exacerbation over the past few weeks.
HISTORY OF PRESENT ILLNESS
The patient is a 54-year-old female with a history of migraines, who presented with persistent headaches over the past few weeks. She reports experiencing headaches every day, which she describes front and back of her head. this doesn't feel as bad
as her migraine like headaches, which are usually accompanied by nausea/vomiting. but this headache has been daily for about a month despite her taking her preventative qulipta which she takes daily
pt has not been seen i the ER for a year for headaches but was once here frequently
and she was under care of different neurologists who have tried other meds without improvement.
She denies any changes in her usual headache pattern or experiencing new triggers. She has not had recent imaging of her head in over a year and has not been to the Emergency Room recently. once they thought maybe she had Idiopathic intracranial
hypertension but this was not confirmed. she had LP which was normal.
Light sensitivity is reported but no blurred vision.
pt decided to come in because she felt that this was enough time that she has dealt with this headache
she is stressed
PAST MEDICAL AND SURGICAL HISTORY
History of migraines.
MEDICATIONS
- 'Chulpta' (likely intended to be Ubrelvy or Ultracet)
- [id number] estrogen supplement
- Multivitamins
REVIEW OF SYSTEMS
- Head: Persistent headaches daily for weeks.
- Neurology: No recent imaging, light sensitivity noted.
- Digestive: Reports of gastroesophageal reflux-like symptoms as a recent onset.
- Cardiovascular: Denies any significant cardiac problems.
- Eyes: Light sensitivity without blurred vision.
PHYSICAL EXAM
nursing notes and vitals reviewed
see above
PLAN
Medications will be ordered as needed for headache control.
DIFFERENTIAL DIAGNOSIS
The Differential Diagnosis includes, in no particular order and is not limited to:
1. Chronic migraine
2. Tension-type headache
3. Medication overuse headache
4. Cervicogenic headache
5. Rebound headache due to [id number] medication
6. Cluster headache
7. Sinus headache
8. Occipital neuralgia
9. Trigeminal neuralgia
10. Secondary headache due to underlying condition such as intracranial hypertension.
54 y/o F
chronic headaches
on meds but pt is poor historian
S.O. here says she only takes qulipta
she has had daily headache x 1 mo not worse today but continues and decided to get checked out
pt has not had any vomiting, confusion, weakness, red flag sypmtoms
she apparently said in triage athat she had some chest pain earlier today so they did an ekg and troponin
pt says since getting here she has not had CP
pt's ekg is nonspecific st seg changes/III, avF somewaht similar to past
1st trop is 0.015 which is still negative but not undetectable
2nd trop was 0..17 which is delta < 0.05 and thus not concerning; d/w ed attending who agreed; also pt does not have chest pain
her other labs show mild transaminitis wihtout any GI sypmtoms somewhat simielar to previous
neuro intact
and her headache is down to 4/10 after iv meds
she is drowsy fromt he benadryl but feels better
decadron
d/c home
*Pulse Oximetry
SaO2: 97
Patient hypoxic: no (98)
*Critical Care Note
Total Time (30-74mins, 75-104mins- exclusive of procedures): Not Applicable
ED Attending Note
-
Portions of this chart may have been created with voice recognition software.� Occasional wrong word or��sound alike� substitutions may have occurred due to the inherent limitations of voice recognition software.
Discharge Plan
Departure
Patient Disposition: Home (Routine Discharge)
Date of Disposition: 03/20/25
Time of Disposition: 00:05
Patient with high blood pressure during this ER visit?: No
Condition: Fair
Covid-19: Negative COVID-19
Discharge Problem:
Chronic headache
Instructions: Headache, Adult (DC)
Prescriptions:
No Action
meclizine [Antivert] 25 MG tablet
25 mg PO Q8 PRN (Reason: vertigo) Qty: 30 0RF
hydrochlorothiazide 25 mg tablet
25 mg PO DAILY Qty: 30 0RF
prochlorperazine maleate 10 mg tablet
10 mg PO ONCE PRN (Reason: headache) Qty: 10 0RF
propranolol 10 mg tablet
10 mg PO ONCE Qty: 30 0RF
Referrals:
Patty Mott PA-C [Family Provider, Family Practice]
Activity Restrictions/Additional Instructions:
YOUR LIVER ENZYMES WERE MILDLY ELEVATED (THEY WERE IN THE PAST TOO) - ASK YOUR DOCTOR TO MONITOR THEM
FOLLOW UP WITH YOUR FAMILY DOCTOR REGARDING YOUR HEADACHES
RETURN FOR ANY SEVERE HEADACHE, VOMITING, CONFUSION, WEAKNESS ETC.
Interventions
Interventions:
*Risk Screen - Suicide Last Done: 03/19/25 19:26
*General Assessment Last Done: 03/19/25 19:26
*Neglect/Abuse Screening Last Done: 03/19/25 19:26
*ED- Fall Risk Assessment Last Done: 03/19/25 22:21
*ED COVID-19 Vaccine History Last Done: 03/19/25 22:21
ED- Neurological Assessment Last Done: 03/19/25 22:21
Discharge Date and Time
Print Language: BELARUSIAN
--- NOTE | 2025-03-19 23:38 | EDRN ---
Patient is sleeping at this time, at bedside, call colon in reach, will continue to monitor
--- NOTE | 2025-03-20 | EDRN ---
came out of room yelling ' can someone tell me what's going on' CALE Morales back in to see patient who has been sleeping and explained just letting her feel better before being discharged, cale morales went over results and plan for discharge
[2025-03-20] MEDS: DECADRON 10 MG IV (00:03)
== END 2025-03-20 00:05 | disposition home or self-care (01) ==
LOC: EMR 19:18
PROVIDERS: Physician Assistant; EMERGENCY PHYSICIAN Emergency Medicine; FAMILY PHYSICIAN Physician Assistant Medical
DX: R51.9 Headache, unspecified (principal); G89.29 Other chronic pain; I10 Essential (primary) hypertension; Z11.52 Encounter for screening for COVID-19
CPT/HCPCS: 96374; 96375; 96361; 99284; 80053; 84484; 85025; 87502; 87811; 93005

== ENCOUNTER 2025-06-17 16:47 | Inpatient (IN) | payer OTHER, SELFPAY ==
[2025-06-17] VITALS (33 sets, daily range): BP systolic 119–156; BP diastolic 62–116; BMI 31.0
[2025-06-17 11:36] LABS: Glucose - Point of Care 135 mg/dl (70-99)
[2025-06-17 11:52] LABS: Hematocrit 44.0 % (37.0-47.0); Hemoglobin 15.1 g/dL (12.0-16.0); Mean Corp Hgb Conc. 34.3 g/dL (33.0-37.0); Mean Corpuscular Volume 83.0 fL (81.0-99.0); Nucleated Red Blood Cells % 0 %; Platelet Count 244 10^3/uL (130-400); Red Cell Dist. Width 13.2 % (11.5-14.5)
--- NOTE | 2025-06-17 12:04 | ED.GENMED ---
History of Present Illness
General
Chief Complaint: Weakness
Source: patient and spouse
Exam Limitations: none
Time Seen by Provider: 06/17/25 11:44
Nursing documentation reviewed up to this point in time: agreed with
History of Present Illness
History of Present Illness:
The patient is a 54-year-old female brought in by her for ' 4 days of not feeling well'. Her reports that the patient has a longstanding history of frequent migraine headaches and has been suffering with a migraine headache for
several days. He reports that she has also had multiple episodes of vomiting associated with the headache. Patient arrives looking very withdrawn and disheveled. She admits to feeling extremely depressed. She is tearful. She denies suicidal and
homicidal thoughts. Her reports that 1 or more of their children had to go back to college, which may have triggered her depression. Her reports that currently she has not been taking any medication for her headaches or her
depression. Her reports that this is the most ' out of it' that she seems to be. He reports that earlier this morning around 2 AM he noticed that she seems slumped and unresponsive in a chair and had foaming coming out of her mouth. He
reports he approached to help her and she screamed ' get away'. The patient seems lethargic, however, she easily answers my questions and opens her eyes and then shuts them. She complains of a typical migraine headache. She denies visual changes.
She reports she just feels weak all over. She denies neck pain, rash and fever. She denies sore throat.
Past History
Past History
ED Past Medical History: HTN, Psychiatric (History of depression but has not continued therapy or medication for this according to her ) and Other (Migraines)
ED Past Surgical History: (X 1) and Other (hernia repair)
Social History
Tobacco: Non-smoker
Alcohol: None
Drug: None
Personal:
Living: with family
Employment: Other
Family History
Family History: Other
Review of Systems
Review of Systems
Allergies reviewed?: Yes
Other source history: other ()
All Other Systems: ROS reviewed and negative except as documented in HPI and ROS
Constitutional: Reports fatigue
EENT: Reports no symptoms
Respiratory: Reports no symptoms
Cardiac: Reports syncope (Possible syncope versus seizure this morning)
ABD/GI: Reports nausea, vomiting and anorexia
: Reports no symptoms
Musculoskeletal: Reports no symptoms
Skin: Reports no symptoms
Neurological: Reports headache
Endocrine: Reports no symptoms
Hematologic/Lymphatic: Reports no symptoms
Psychiatric: Reports depression
Phy Exam
Physical Exam
Physical Exam:
Physical Exam
General: Patient with flat affect. Tearful. Keeps eyes shut but opens them to answer questions and then shuts them. Hair is matted. Patient appears disheveled
Neck: supple. no meningeal signs. normal psoterior pharynx. Extremely dry mucous membrane
Heart: s1/s2 regular rate and rhythm, no murmur. equal radial pulses.
Lungs: no acute respiratory distress. clear bilaterally
Abdomen: normal bowel sounds. not tender. no CVAT
Neuro: alert and oriented. no focal neurological deficits. Follows all simple commands. At times whispers when speaks.
Skin: no rash
Psychiatric: Appears extremely depressed, flat affect
Extremities: no edema. no calf tenderness. negative homans. good distal pulses
Course
Orders/Labs/Results
Orders:
Orders
06/17/25 11:41
Complete Blood Count/With Diff Urgent
06/17/25 12:06
CT Head W/o Iv Contrast Urgent
Comment:
Reason For Exam: MS change, headache
06/17/25 12:08
Diphenhydramine [Benadryl] 25 mg IV NOW STA
06/17/25 12:09
Prochlorperazine [Compazine] 10 mg IV NOW STA
06/17/25 12:10
Dexamethasone Sod Phosphate [Decadron] 10 mg IV NOW STA
06/17/25 12:17
COVID-19 Antigen Urgent
Source: Nasal Swab
PTT Urgent
Prothrombin Time Urgent
Influenza A+B Rapid Molecular Urgent
MARIO Source: Nasal Swab
Specimen Description:
06/17/25 12:18
Urine Drug Abuse Screen Urgent
Date Specimen was Collected: 06/17/25
Time Specimen was Collected: 12:04
06/17/25 12:44
Acetaminophen Urgent
Basic Metabolic Panel Urgent
Lactic Acid Urgent
Lipase Urgent
Salicylate Urgent
06/17/25 13:14
Electrocardiogram (*1) Urgent
Reason for Study: Syncope
EKG- Treatment ONCE
06/17/25 13:22
Ceribell [Rapid Point of Care EEG (ED/ICU ONLY)] Q1H
Indications for use:: Altered Mental Status
06/17/25 14:16
Consult Neurology [NEUROLOGY CONSULT] Urgent
Consulting Provider: Primo Caballero
Was physician already notified: Yes
Reason for consult: lethargy
Abnormal Lab Results
06/17/25 06/17/25 06/17/25
11:35 11:41 12:17
WBC 17.7 H 10^3/uL
(4.8-10.8)
Abs Immat Gran (auto) 0.1 H 10^3/uL
(0-0.05)
Absolute Neuts (auto) 13.8 H 10^3/uL
(1.4-6.5)
Absolute Monos (auto) 1.1 H 10^3/uL
(0.1-0.6)
Neutrophils % 78.0 H %
(42.2-75.2)
Lymphocytes % 15.3 L %
(20.5-51.1)
PT 15.0 H Sec
(11.4-14.6)
Carbon Dioxide
BUN
Glucose
Salicylates
Acetaminophen
POC Glucose 135 H mg/dl
(70-99)
06/17/25
12:44
WBC
Abs Immat Gran (auto)
Absolute Neuts (auto)
Absolute Monos (auto)
Neutrophils %
Lymphocytes %
PT
Carbon Dioxide 21 L mmol/L
(22-30)
BUN 25 H mg/dl
(7-17)
Glucose 108 H mg/dl
(70-99)
Salicylates < 1.0 L mg/dl
(2.0-20.0)
Acetaminophen < 10 L ug/ml
(10-30)
POC Glucose
06/17/25 11:41
06/17/25 12:44
Vital Signs
Initial and Last Documented VS:
Initial Vital Signs
Temp Pulse Resp BP Pulse Ox
98.6 F 101 18 150/98 97
06/17/25 11:05 06/17/25 11:05 06/17/25 11:05 06/17/25 11:05 06/17/25 11:05
Last Documented Vital Signs
Temp Pulse Resp BP Pulse Ox
98.1 F 99 20 127/66 96
06/17/25 12:00 06/17/25 12:45 06/17/25 12:45 06/17/25 12:40 06/17/25 12:45
MDM/Problems Addressed
Differential Diagnosis Includes:
Acute on chronic migraine, acute depressive episode, intracranial hemorrhage
MDM/Problems Addressed:
Patient presents with acute on chronic headache and feelings of severe depression
Chronic conditions affecting care:
Migraine headache
Acute Exacerbation and/or Progression of Chronic Illness:
Patient may have acute exacerbation of migraine headache
*Radiology
Radiology exam reviewed: radiology read reviewed
*Pulse Oximetry
SaO2: 94
Oxygen Mode of Delivery: Room air
Patient hypoxic: no
*Vibrator Operator Interpretation
Rate: normal
Rhythm: sinus
*Critical Care Note
Total Time (30-74mins, 75-104mins- exclusive of procedures): 35 minutes
comment:
35 minutes critical care given to patient including frequent reassessments of her mental status and alertness, time spent reviewing her lab work, CT report and speaking to neurology
Data Reviewed
Review of Other/Old Records Reveals: Radiology Studies (MRI brain reviewed from 2023)
Source: patient and spouse
Update Note
Update Note:
1:15 PM patient seems to be more lethargic and somnolent. I am able to arouse her but she is barely able to answer questions and then seems to go back to sleep. Awaiting CT report. Will apply Ceribell
Cerrbill shows no status epilepticus. Dr. Garcia from neurology came to evaluate patient. Does not feel there is an acute organic etiology of her mental status. Feel this is likely psychiatric in etiology, however, recommends IMU level of care with
frequent neurochecks, MRI brain and psychiatric eval
ED Attending Note
-
Portions of this chart may have been created with voice recognition software.� Occasional wrong word or��sound alike� substitutions may have occurred due to the inherent limitations of voice recognition software.
Discharge Plan
Departure
Patient Disposition: Admit
Date of Disposition: 06/17/25
Time of Disposition: 14:10
Admit to: IMU
Presentation/result/management discussed w/ accepting MD/DO: Hospitalist
Condition: Fair
Discharge Problem:
Acute alteration in mental status
Prescriptions:
No Action
meclizine [Antivert] 25 MG tablet
25 mg PO Q8 PRN (Reason: vertigo) Qty: 30 0RF
hydrochlorothiazide 25 mg tablet
25 mg PO DAILY Qty: 30 0RF
prochlorperazine maleate 10 mg tablet
10 mg PO ONCE PRN (Reason: headache) Qty: 10 0RF
propranolol 10 mg tablet
10 mg PO ONCE Qty: 30 0RF
Referrals:
Patty Mott PA-C [Family Provider, Family Practice]
Interventions
Interventions:
*Risk Screen - Suicide Last Done: 06/17/25 11:05
*General Assessment Last Done: 06/17/25 11:05
*Neglect/Abuse Screening Last Done: 06/17/25 11:05
*ED- Fall Risk Assessment Last Done: 06/17/25 11:39
ED- Cardiac Assessment Last Done: 06/17/25 11:39
ED- Neurological Assessment Last Done: 06/17/25 11:39
ED- Pulmonary Assessment Last Done: 06/17/25 11:39
Discharge Date and Time
Print Language: OCCITAN
[2025-06-17] MEDS: COMPAZINE 10 MG IV (12:16)
[2025-06-17] MEDS: BENADRYL 25 MG IV (12:16)
[2025-06-17] MEDS: DECADRON 10 MG IV (12:16)
[2025-06-17 12:54] LABS: INR 1.17; PT 15.0 Sec (11.4-14.6)
[2025-06-17 12:55] LABS: APTT 28.3 Sec (23.4-35.0)
[2025-06-17 13:04] LABS: COVID-19 Antigen Negative (Negative)
[2025-06-17 13:26] LABS: Acetaminophen < 10 ug/ml (10-30); Blood Urea Nitrogen 25 mg/dl (7-17); Calcium 8.6 mg/dl (8.4-10.2); Carbon Dioxide 21 mmol/L (22-30); Chloride 107 mmol/L (98-107); Glucose 108 mg/dl (70-99); Lipase 32 U/L (23-300); Salicylate < 1.0 mg/dl (2.0-20.0); Sodium 140 mmol/L (135-145); eGFR > 60.00
--- NOTE | 2025-06-17 14:11 | CON.NEURO4 ---
Consultation - Neurology 4
-
CONSULTING PHYSICIAN: Dr. Primo Caballero
REFERRING PHYSICIAN: Gemma Rivera
DICTATED BY: Dr. Primo Caballero
DATE/TIME OF REQUEST: 06/17/2025
DATE/TIME OF CONSULTATION: 06/17/2025
Reason for Consultation: Weakness
ASSESSMENT AND PLAN:
The patient is a 54-year-old female who was brought in by her for not feeling well for about 4 days. The patient's was present at the bedside to provide the history and says that the patient has a long standing history of frequent
migraine headaches and has been suffering from a migraine headache for the last several days. She also has had multiple episodes of vomiting along with the headache. The patient appears to be withdrawn and admits to be feeling extremely depressed
and she is tearful. She denies any suicidal or homicidal thoughts. According to the her child had to go back to college which may have triggered her depression. She has seen psychiatry in the past but is not on any medications for
depression. According to , this morning at around 2 AM he saw her slumped and unresponsive in a chair and also had foam coming out of her mouth. There is no history of generalized tonic-clonic activity or tongue bite.
The patient appears to be depressed and does not appear to be keenly interested in her surroundings, however she is able to follow simple verbal commands and is able to move both upper and lower extremities. The patient is able to tell her name.
The patient clinically does not appear to have had a stroke. The plan is to get MRI of the brain with and without contrast, transfer the patient to IMU and get a psychiatry consult. The patient has been seen by psychiatrist in the past but she is
not on any medications for depression as per her . The patient has a history of frequent migraine headaches and she has been suffering from migraine headaches for the last several days.
Ceribell monitoring did not show any seizure activity.
. MRI of the brain with and without contrast
. Transferred to IMU
. Psychiatry consult for possible depression.
History of Present Illness:
The patient is a 54-year-old female who was brought in by her for not feeling well for about 4 days. The patient's was present at the bedside to provide the history and says that the patient has a long standing history of frequent
migraine headaches and has been suffering from a migraine headache for the last several days. She also has had multiple episodes of vomiting along with the headache. The patient appears to be withdrawn and admits to be feeling extremely depressed
and she is tearful. She denies any suicidal or homicidal thoughts. According to the her child had to go back to college which may have triggered her depression. She has seen psychiatry in the past but is not on any medications for
depression. According to , this morning at around 2 AM he saw her slumped and unresponsive in a chair and also had foam coming out of her mouth. There is no history of generalized tonic-clonic activity or tongue bite.
Past Medical History:
Migraine
Review of Systems:
Unable to to obtain review of systems as the patient is unable to provide information.
Neurologic Examination:
The patient is laying in bed with her eyes closed however when she is asked to open her eyes she can open them. She is able to her name and appears to make an effort to tell her age but her speech is unintelligible. The patient is able to follow
simple verbal commands and is able to give a 'thumbs up' sign with both hands. The patient is able to raise her both hands against gravity however she cannot lift the elbow off the bed. She is also able to move her feet to verbal commands. The
patient appears to be withdrawn and does not appear to take interest in her surroundings.
Vital Signs and Labs
-
Vital Signs and Labs:
Vital Signs
Temp Pulse Resp BP Pulse Ox
36.7 C 95 17 126/62 93
06/17/25 12:00 06/17/25 14:15 06/17/25 14:15 06/17/25 14:00 06/17/25 14:15
Lab Results
06/17/25 11:41
06/17/25 12:44
PT 15.0 Sec (11.4-14.6) H 06/17/25 12:17
INR 1.17 06/17/25 12:17
APTT 28.3 Sec (23.4-35.0) 06/17/25 12:17
Sodium 140 mmol/L (135-145) 06/17/25 12:44
Potassium mmol/L (3.5-5.1) 06/17/25 12:44
BUN 25 mg/dl (7-17) H 06/17/25 12:44
Glucose 108 mg/dl (70-99) H 06/17/25 12:44
Calcium 8.6 mg/dl (8.4-10.2) 06/17/25 12:44
Ur Buprenorphine Negative (Negative) 06/17/25 12:18
Medications
-
Home Medications
�Medication �Instructions �Recorded
meclizine 25 mg tablet (Antivert) 25 mg PO Q8 PRN vertigo ##30 01/31/11
hydrochlorothiazide 25 mg tablet 25 mg PO DAILY #30 tabs 12/17/23
prochlorperazine maleate 10 mg 10 mg PO ONCE PRN headache #10 tabs 12/21/23
tablet
propranolol 10 mg tablet 10 mg PO ONCE #30 tabs 12/21/23
--- NOTE | 2025-06-17 15:13 | HPS.HSE ---
Addendum entered and electronically signed by Alfonso Pearson MD 06/17/25 18:02:
This is an addendum to H&P written by Zachary Sierra on 06/17/2025. �Patient seen and examined independently with resident.
54-year-old female past medical history of obstructive sleep apnea, hypertension, depression, migraines, presenting for 4 days of not feeling well. �Has been having migraine for several days. �Multiple episodes of vomiting and headache. �She is
depressed and tearful because her children had to go back to college. �This morning she was slumped and unresponsive in chair foaming out of her mouth. �He tried to help when she screamed 'get away.' �Denies visual changes.
Intermittent episodes of depression for 2 years when she lost her job at that time. �She has had episodes like this where she has become less responsive. �She sometimes will be found asleep during the daytime. �Waking up at night frequently due to
apnea.
She stopped her psychiatric medication including Qulipta a week ago because she did not want to take the medications.
Vital signs unremarkable apart from mild tachycardia. �Patient appears very dry on examination. �She will move her extremities to sternal rub and pain but not opening eyes.
Labs show leukocytosis 17.
CT head shows cerebellar tonsils low-lying suggesting Chiari malformation or intracranial hypotension. �No evidence of obstructive hydrocephalus. Ceribell shows no seizure activity.
Patient with concern for catatonic depression vs less likely seizure. �Patient appears to be maintaining airway. �Check ABG. �Check TSH and B12. �Check UDS. Check EKG and UA.� �IV fluids.
Check MRI brain to evaluate possible Chiari malformation. Neurology consulted. Psychiatry consulted.
Original Note:
Family Physician
-
Family Physician: Patty Mott
Chief Complaint
-
Altered mental status.
History of Present Illness
Eduarda is a 54-year-old female with history of obstructive sleep apnea, chronic migraines, major depressive disorder, hypertension presents with 4 days of progressive withdrawal, poor oral intake and worsening lethargy. History is obtained from
the due to patient medical condition. Patient is somewhat arousable with sternal rub, somewhat following verbal commands. Her reports that since the incident the patient has been withdrawn from the family interaction has refused to
eat or drink or care for herself she has been most of her time sitting on the couch, watching TV and sleeping. This pattern has been recurrent over the past 2 years during which she had approximately been to the ED around 7 times. She has stopped
her sertraline 1-1/2 months ago because she refused to take the medication. This morning she developed severe headache consistent with prior migraines followed by vomiting. She became markedly lethargic and briefly unresponsive during which her
noted gurgling sound but no seizure activities, no shaking like activities. 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 Symptoms worsen further after her to return to college post Thanksgiving. She previously engaged in therapy and was treated with antidepressant which she discontinued therapy
on her own. She was also previously on Qulipta for migraines but she has stopped Qulipta on her own like a week ago.
In the ED patient is able to maintain her airway, vitals are stable. She is lethargic but somewhat able to follow verbal commands.
Medical History
Past Medical History
Past Medical History: Reports HTN, Psychiatric (Major depressive disorder untreated) and Other (Migraine chronic)
Past Surgical History: Reports None
Social History
Unable to obtain full social history at this time due to: Patient Non-verbal
Family History
Family History: Not pertinent
Allergies / Home Medications
Allergies reflects when Allergies were last updated in [facility].
Home Medications with original date entered in [facility]
Allergy/Medication List:
Allergies
Allergy/AdvReac Type Severity Reaction Status Date / Time
No Known Allergies Allergy Verified 06/17/25 11:05
Home Medications
meclizine 25 mg tablet (Antivert) 25 mg PO Q8 PRN vertigo ##30 01/31/11
hydrochlorothiazide 25 mg tablet 25 mg PO DAILY #30 tabs 12/17/23
prochlorperazine maleate 10 mg tablet 10 mg PO ONCE PRN headache #10 tabs 12/21/23
propranolol 10 mg tablet 10 mg PO ONCE #30 tabs 12/21/23
Review of Systems
-
History Source: Family
A 12 point ROS was completed and negative except as noted: Yes
Psych: Reports Depression
Physical Exam
Vital Signs
Vital Signs
Temp Pulse Resp BP Pulse Ox
98.1 F 95 17 126/62 93
06/17/25 12:00 06/17/25 14:15 06/17/25 14:15 06/17/25 14:00 06/17/25 14:15
Physical Exam
General: Other (lethargic, somewhat following verbal commands with sternal rub like opening her eyes, move extremities)
HEENT: NormoCephalic and Other (Dry mucous membrane)
Respiratory: Clear
Cardiac: S1/S2 and Regular Rhythm
GI: Soft, Non Tender, Non Distended and Normal Bowel Sounds
Neuro: Nonfocal/grossly intact and Other (Lethargic, able to follow some verbal commands like opening her eyes, squeezing fingers)
Psych: Depressed
Laboratory Results
-
06/17/25 11:41
06/17/25 12:44
Laboratory Results
PT 15.0 Sec (11.4-14.6) H 06/17/25 12:17
INR 1.17 06/17/25 12:17
APTT 28.3 Sec (23.4-35.0) 06/17/25 12:17
Lactic Acid Cancelled 06/17/25 12:18
Total Bilirubin Cancelled 06/17/25 12:44
AST Cancelled 06/17/25 12:44
ALT Cancelled 06/17/25 12:44
Alkaline Phosphatase Cancelled 06/17/25 12:44
Lipase 32 U/L (23-300) 06/17/25 12:44
Data Reviewed
-
CT Scan: Report Reviewed by me and Discussed with Physician
Lab Data: Labs Reviewed by me and Discussed with Physician
Impression/Plan
-
IMPRESSION:
Lethargy, less responsive
History of major depressive disorder
Leukocytosis
Chronic migraines
History obstructive sleep apnea
History of hypertension
PLAN:
Lethargy/less responsive/withdrawn
Noncompliant with psych medication/refused to take antidepressant medication. Refusing to eat/drink in past couple days.
Differential diagnosis: relapse of severe depression, Catatonia, drug overdose, serotonin syndrome
Vitals are stable, on room air
Responsive somewhat to verbal commands like opening eyes, moving extremities.
Admit patient to IMU
Head CT negative for stroke.
Check ABG stat, toxicology screen
Check UA reflex to culture, lactic acid
Check EKG, brain MRI
On physical exam patient looks extremely dehydrated --- start IV fluids
Neurochecks
Consult neurology and psychiatry
Head CT revealed Cerebellar tonsils are low-lying, suggesting Chiari malformation, intracranial hypotension, or a combination of these processes.There is no evidence for obstructive hydrocephalus with stable appearance of the lateral ventricles.
There is no evidence of intracranial hemorrhage.
History of major depressive disorder
Noncompliance/refused to take medication about 1-1/2 of a month ago
Depressed mood for past 2 years.
Recommend inpatient psychiatry as patient is refusing to eat/drink/care for herself.
Consult psychiatry for further evaluation
Leukocytosis
Afebrile white count 17,000
Check UA, urine drug screen
Unclear source of infection.
Chronic migraines
Noncompliant with Qulipta
Continue propranolol
Check brain MRI
IV Zofran prn for nausea
History of hypertension
Continue hydrochlorothiazide
History of BPPV
continue meclizine
History of obstructive sleep apnea
not on CPAP
Full code
Lovenox
regular diet
--- NOTE | 2025-06-17 15:16 | W.RAPID.EEG ---
Rapid EEG
-
Procedure Date: 06/17/25
Patient Status: Emergency Room
Results:
IMPRESSION:
No evidence of status epilepticus
Patient was awake and drowsy.
Recording Information:
Diagnostic Recording Time: 01:24:00 (84 minutes)
Recording 1: [email or web address]
Start Time: Jun 17, 2025 13:50 PM End Time: Jun 17, 2025 15:14 PM
Recording Technique: This EEG was obtained using a 10 lead, 8 channel system positioned circumferentially without any parasagittal coverage (rapid EEG). Computer selected EEG is reviewed as well as background features and all clinically significant
events. Clarity algorithm utilized and implemented to provide analysis of underlying activity and seizure detection used to facilitate reading. ICD-10 Code BV88R52
Clinical History: WALLACE OCONNOR is a 54 year old Undifferentiated AMS, Other: [Unknown] patient undergoing EEG to screen for non-convulsive status epilepticus.
--- NOTE | 2025-06-17 16:41 | EDCM ---
Addendum entered by Pilar Hernandez 06/17/25 16:46:
Per correct address is [address]
Original Note:
Reviewed chart and met with in ED. Pt did not participate in conversation. They live in 2 story home, no SCOTTY. First floo half bath, full flight to second floor bedroom and full bath.
Independent in ADLs, personal care and ambulation at baseline but has been weaker lately. Does not use assistive device, no DME in home.
Confirms prescription coverage.
No hx VN or SNF
PCP: Patty Mott
Pharmacy: [facility]
Discharge plan pending ongoing medical evaluation, CM will continue to follow for all discharge planning needs.
[2025-06-17 17:11] LABS: B.E. 1.6 mmol/L; HCO3 24.6 mmol/L (21-28); O2 Saturation % 95.8 % (94-98); PCO2 33 mmHg (32-35); PO2 66 mmHg (83-108)
[2025-06-17] MEDS: NSS 1000 IV (21:00)
[2025-06-17] MEDS: LOVENOX 40 MG SC (21:18)
[2025-06-17 21:29] LABS: Urine Character Slightly Cloudy (Clear)
[2025-06-17 21:45] LABS: Urine Red Blood Cell 26-30 /HPF (0-2); Urine White Cell 30-40 /HPF (0-5)
[2025-06-17 21:51] LABS: Magnesium 2.1 mg/dl (1.6-2.3)
--- NOTE | 2025-06-17 22:00 | PTCARENOTE ---
Pt arrived from ED ~2054. Pt arousable to tactile/painful stimuli. Pt able to state name and , follows simple commands. Pt denies pain. Pt nodded head 'yes' to recent falls, nodded head 'no' when asked if she took any medication not as prescribed
at home. Pupils are unequal and nonreactive; HELP DESK COORDINATOR called to bedside to assess pt. + corneals. Lung sounds are decreased/coarse throughout w fine crackles in b/l base, pox 94-95% on room air. Telemetry rhythm reveals ST, HR 100-110's, no edema,
palpable peripheral pulses present. +BS, abdomen soft obese. Arrived to unit with Alejo catheter in place draining cloudy yellow urine. Skin as documented. L hand/finger int flushed and patent, capped. R w int flushed and patent, capped. R hand int
with IVF as ordered. Complete CHG bath and Alejo care provided. Bed alarm on and monitoring. Admission information either unavailable at this time or pulled from prior admissions.
Safe environment maintained, will monitor closely.
[2025-06-17 22:13] LABS: TSH 0.38 uIU/ml (0.47-4.68)
[2025-06-17 22:32] LABS: Vitamin B12 394 pg/ml (239-931)
[2025-06-18] VITALS (15 sets, daily range): BP systolic 116–146; BP diastolic 62–94; BMI 31.3
--- NOTE | 2025-06-18 01:33 | PTCARENOTE ---
Pt sleeping since arrival to unit. No more verbal responses from pt; will withdraw to painful stimuli. Pt's pox started to desaturate to 88-89% on room air, nasal cannula applied.
Will continue to monitor.
[2025-06-18 04:42] LABS: Hematocrit 36.2 % (37.0-47.0); Hemoglobin 12.1 g/dL (12.0-16.0); Mean Corp Hgb Conc. 33.4 g/dL (33.0-37.0); Mean Corpuscular Volume 85.4 fL (81.0-99.0); Platelet Count 218 10^3/uL (130-400); Red Cell Dist. Width 13.2 % (11.5-14.5)
[2025-06-18 05:09] LABS: Blood Urea Nitrogen 21 mg/dl (7-17); Calcium 8.8 mg/dl (8.4-10.2); Carbon Dioxide 24 mmol/L (22-30); Chloride 108 mmol/L (98-107); Estimated Creatinine Clearance 101 ml/min; Glucose 105 mg/dl (70-99); Potassium 3.6 mmol/L (3.5-5.1); Sodium 139 mmol/L (135-145); eGFR > 60.00
--- NOTE | 2025-06-18 05:53 | PTCARENOTE ---
Pt will open eyes and state name/. Pt follows simple commands. Generalized weakness noted. Repositioning Q2H.
Pt's pox desaturating to 88-89% intermittently. Pt encouraged to cough/deep breathe. When pt follows that prompt her pox improves to >92% on 4L O2 nasal cannula. Pt does not always follow verbal cues to cough, deep suctioning performed. Will
continue to monitor closely.
[2025-06-18] MEDS: NSS 1000 IV (07:03)
--- NOTE | 2025-06-18 08:43 | W.PN.HOSP.TC ---
Today's Communication/Plan
-
See plan
Assessment / Plan
Assessment / Plan
Physical exam:
General: Acutely ill
HEENT: Normocephalic, Atraumatic and Moist Mucous Membranes
Respiratory: Coarse rhonchi at the bases; Negative Wheezes, Rales
Cardiac: Regular Rhythm and S1/S2
GI: Soft, Nontender and Nondistended
Musculoskeletal: No Clubbing, No Cyanosis and No Edema
Neuro: Lethargic, does move spontaneously all 4 extremities before going back to sleep.
Psych: Limited judgment and insight at the moment
A/P:
Severe idiopathic spontaneous intracranial hypotension:
Neurology consult appreciated
Seen MRI of the brain
Discussed with tertiary care center for urgent transfer and Dr. Sandy Saunders gladly accepted patient in transfer to [place] and placed her on 'emergent neurological transfer'.
Discussed with at bedside
Discussed with our local neurologist today
Discussed with attending RN
Acute metabolic encephalopathy:
Likely due to neurological process as above
On IVF
On B12 supplementation
Acute hypoxic respiratory failure:
Likely combination of atelectasis and aspiration pneumonia
Currently on 4 L of oxygen with pulse ox in the mid 90s and reported to drop to the 80s on activity
Obtain chest x-ray
Start IV Unasyn 3 g every 6 hours
Incentive spirometry
Wean oxygen as able and monitor respiratory status closely
Migraine headache:
Treat with supportive care
DVT prophylaxis:
Lovenox SQ
CODE STATUS:
Full code
Total Critical Care Time__55___ minutes. I was immediately available to the patient and staff. I personally examined, reviewed labs, diagnostic images/reports, interpretations, treatment plans, discussed patient care with other providers and
family or caregivers (if patient is unable to make decisions), entered orders as appropriate and documented the medical record.
Anticipated Discharge: > 48 hours
Subjective/Interval History
-
Date of Service: June 18, 2025
Patient encephalopathic, minimally responsive, also hypoxic. Afebrile.
Objective Data
-
Labs:
Laboratory Results
06/18/25
04:12
WBC 13.1 H
Hgb 12.1
Hct 36.2 L
Plt Count 218
Sodium 139
Potassium 3.6
Chloride 108 H
Carbon Dioxide 24
BUN 21 H
Creatinine 0.7
Glucose 105 H
Calcium 8.8
Vital Signs:
Vital Signs
Temp Pulse Resp BP Pulse Ox
97.7 F 95 15 124/85 90
06/18/25 07:20 06/18/25 05:00 06/18/25 05:00 06/18/25 05:00 06/18/25 05:00
I&O
06/17/25 06/18/25 06/19/25
06:59 06:59 06:59
Intake Total 900 / 900
Output Total 1100 / 1100
Balance -200 / -200
--- NOTE | 2025-06-18 08:45 | PTCARENOTE ---
Assumed care of pt at 0715 following shift report. Pt drowsy/lethargic, opens eyes to name. Oriented to person only. Pt stated she was at her parents house and when attempted to orient pt that she was at the hospital, pt adamantly stated 'no, I''m
not'. Pt stated year was 1988 and it was July. When questioned what holiday we just celebrated, pt stated 'Warrior'. Pt denies c/o pain or sob when questioned. Pupils unequal and minimally reactive (see assessment findings). Pt follows commands
appropriately, moving all four extremities with significant weakness noted. Pt remains on O2 at 4l/min via NC. Physical assessment as documented. Comfort care/hygiene completed. Safe environment maintained.
--- NOTE | 2025-06-18 09:20 | W.PN.NEURO.1 ---
Addendum entered and electronically signed by Justin Gill MD 06/18/25 11:40:
Studies reviewed.
I have personally examined the patient. I reviewed and agree with the WEB KNITTER's Note.
My addenda:
Awake, interactive. No acute distress. Wearing oxygen.
Speech slowly produced.
Follows 1-step requests w/ difficulty. No tremor.
Extra-ocular movements grossly intact.
Facial movements full and symmetric. Hearing intact to normal conversational volume.
Normal UE movements bilaterally.
Neck: full ROM.
Chest: no dyspnea
Heart: no JVD
Ext: (-) Clubbing, (-) Cyanosis, (-) Edema
IMPRESSIONS/RECOMMENDATIONS:
Abrupt onset of intractable headache with change in mental status, self stated neck pain and what appears to be oral candidiasis
Differential diagnosis includes meningitis in this patient who has previously been suggested to have idiopathic intracranial hypotension with diffuse meningeal enhancement approximately 1 year ago at which time CSF was bland
MRI of brain with and without contrast; if evidence of meningeal enhancement similar to previous, provide unguided blood patch
Consider CTA head and neck due to pupillary asymmetries
Consider lumbar puncture to better understand if the patient now has meningitis
Check blood work including for viral illnesses
Avoid sedating medications
Start vitamin B12 replacement
Follow TSH and check thyroid peroxidase antibodies
Will follow
Original Note:
Today's Communication / Plan
-
-obtain brain MRI with and without contrast as planned
-pending results of brain MRI, may need LP
-continue migraine treatment
-PT/OT/ST evaluations
Neuro Assessment/Plan
Assessment
The patient is a 54-year-old female with past medical history of migraine, HTN, depression who was brought in to [facility] on 06/17/2025 by her for not feeling well for about [address] 06/17/2025: Cerebellar tonsils are low-lying, suggesting Chiari malformation, intracranial hypotension, or a combination of these processes. If not previously evaluated, consider consultation with neurology and/or neurosurgery. There is no
evidence for obstructive hydrocephalus with stable appearance of the lateral ventricles compared to CT examination of January 12, 2024. There is no evidence of intracranial hemorrhage. Kwong-white matter differentiation appears preserved for CT.
Brain MRI 02/14/2024: SEVERE SPONTANEOUS INTRACRANIAL HYPOTENSION with diffuse pachymeningeal enhancement and reduced CSF volume.
Plan
-obtain brain MRI with and without contrast as planned
-pending results of brain MRI, may need LP
-continue migraine treatment
-PT/OT/ST evaluations
Subjective/Objective
Subjective Data
Date of Service: June 18, 2025
Patient very lethargic. Able to state that we are at [facility]. States that it is October 1987. Able to tell us her brithday. States she does not know why she is here. States she has headache across her eyes and above her eyes 5/10 pain.
States weakness in arms and legs.
Objective Data
Vital Signs
Temp Pulse Resp BP Pulse Ox
97.7 F 95 15 124/85 90
06/18/25 07:20 06/18/25 05:00 06/18/25 05:00 06/18/25 05:00 06/18/25 05:00
Lab Results
06/18/25 04:12
06/18/25 04:12
PT 15.0 Sec (11.4-14.6) H 06/17/25 12:17
INR 1.17 06/17/25 12:17
APTT 28.3 Sec (23.4-35.0) 06/17/25 12:17
Sodium 139 mmol/L (135-145) 06/18/25 04:12
Potassium 3.6 mmol/L (3.5-5.1) 06/18/25 04:12
BUN 21 mg/dl (7-17) H 06/18/25 04:12
Glucose 105 mg/dl (70-99) H 06/18/25 04:12
Calcium 8.8 mg/dl (8.4-10.2) 06/18/25 04:12
Vitamin B12 394 pg/ml (239-931) 06/17/25 21:14
Ur Buprenorphine Cancelled 06/17/25 21:14
Patient Allergies
No Known Allergies Allergy (Verified 06/17/25 11:05)
Review of Systems
-
Unable to obtain full review of systems at this time due to: Acuity and Lethargy
History Source: Patient
Constitutional: No Symptoms
EENT: No Symptoms Reported
Respiratory: No Symptoms
Cardiac: Chest Pain
Abdomen/GI: No Symptoms
Genitourinary: No Symptoms
Musculoskeletal: No Symptoms
Skin: No Symptoms
Neuro: Headache
Endocrine: No Symptoms
Hematologic / Lymphatic: No Symptoms
Allergy / Immunology: No Symptoms
Physical Exam
-
patient lethargic, reduced physical exam
General: No Apparent Distress and Wearing Oxygen
HEENT: Normocephalic, Atraumatic and Anicteric
Respiratory: Other (nasal cannula)
Cardiac: No JVD
GI: Non-distended
Skin: Rash (face and chest)
Extremities: No Clubbing, No Cyanosis and No Edema
Psych: Confused; Negative Intact Judgement/Insight
Extended Neurological Exam
Attention Span & Concentration: Lethargic and Unable to Perform 2 Step Request
Memory: Unable to Recall
Speech: Severely Reduced Output
Cranial Nerve II: Left Eye: Other (slower than right)
Cranial Nerve VII: Facial Symmetry: Normal Facial Symmetry
Muscle Strength, Overall: Reduced on Right
Coordination: Other (FTN difficulty on right )
Data Reviewed
-
CT Head: Report Reviewed and Image Reviewed
MRI Head: Ordered, Report Reviewed and Image Reviewed
EEG: Ordered and Report Reviewed
Medical Test Reports: Report Reviewed
Labs: Report Reviewed
Reviewed with: Physician and Patient
Old Records: Summarized
--- NOTE | 2025-06-18 09:30 | PTCARENOTE ---
Dr Gill in room to evaluate pt.
--- NOTE | 2025-06-18 10:30 | PTCARENOTE ---
Pt to MRI w/ RN in attendance to monitor. Pt's in room.
[2025-06-18] MEDS: UNASYN IV ×2 (12:12→17:11)
[2025-06-18] MEDS: DESENEX/MITRAZOL/ZEASORB 1 APPLIC TOPICAL (12:13)
[2025-06-18] MEDS: CYANOCOBALAMIN 1000 MCG IM (12:34)
--- NOTE | 2025-06-18 12:51 | PTCARENOTE ---
Took over care of pt after back from MRI. Pt flat and withdrawn. Oriented x2. General weakness. Currently SpO2 92% on 4L NC.
Report given to [facility] transport. Await bed assignment.
--- NOTE | 2025-06-18 16:17 | CM ---
VM received from Dina at [facility], asking if patients insurance was verified here when she was admitted. Call placed to Admissions who stated that her insurance was verified on admission, patient has an [employer] Open Access Choice Plan. Called
Dina at [facility] back to provide information regarding patients insurance however had to leave a for a return call. Update to
--- NOTE | 2025-06-18 17:12 | CM ---
Patient will be discharged to [facility] for specialized acute care. Ambulance transport scheduled for 5:30PM.
--- NOTE | 2025-06-18 17:40 | PTCARENOTE ---
Transferring to [facility]. Report given to RN at [address] Transfer to room 1024. Report given to transport (Advanced nurse). Sent with all belongings from room. , Mahesh, called and notified of transport.
== END 2025-06-18 17:45 | disposition short-term general hospital (02) | DRG 70 ==
LOC: ICU 16:47
PROVIDERS: Student in an Organized Health Care Education/Training Program; ADMITTING PHYSICIAN Hospitalist; ATTENDING PHYSICIAN Hospitalist; CONSULT PHYSICIAN Psychiatry & Neurology Neurology; EMERGENCY PHYSICIAN Emergency Medicine; FAMILY PHYSICIAN Physician Assistant Medical
DX: G96.810 Intracranial hypotension, unspecified (principal); G93.41 Metabolic encephalopathy; J69.0 Pneumonitis due to inhalation of food and vomit; J96.01 Acute respiratory failure with hypoxia; J98.11 Atelectasis; Z11.52 Encounter for screening for COVID-19; Z91.148 Patient's other noncompliance with medication regimen for other reason; G43.909 Migraine, unspecified, not intractable, without status migrainosus; F32.A Depression, unspecified
CPT/HCPCS: 36600; 70450; 70553; 71045; 80048; 80143; 80179; 80306; 81003; 81015; 82550; 82607; 82805; 82962; 83605; 83690; 83735; 84439; 84443; 85025; 85027; 85610; 85730; 87086; 87502; 87811; 93005; 96374; 96375; 99291; A9575